=== PATIENT | female | born 1965 | race Caucasian/White ===

== ENCOUNTER 2019-07-31 10:56 | Outpatient (CLI) | payer OTHER, SELFPAY ==
--- NOTE | 2019-07-31 11:00 | MM_ITS ---
WS: [id number] BILATERAL SCREENING MAMMOGRAM WITH CARLOS DISPLACEMENT VIEWS. CAD PERFORMED. HISTORY: encounter for screening mammogram COMPARISON: 10/07/2017, 02/20/2016 and 03/12/2016 Bilateral craniocaudal and mediolateral like views are performed. Carlos displacement views in CC and MLO projection also performed. Breasts composition: The breasts are heterogeneously dense, which may obscure small masses. Prepecto ral implants are similar to the prior study with partial encapsulation. No suspicious mass or calcifi cations identified. MM/[place] [id number] IMPRESSION: BI-RADS: 2-Benign FOLLOW-UP: 1 Year Follow-up
== END 2019-07-31 10:57 | disposition home or self-care (01) ==
LOC: RADSHAW 11:00
PROVIDERS: Family Provider Family Medicine; PCP Family Medicine; Visit Provider Family Medicine
DX: Z12.31 Encounter for screening mammogram for malignant neoplasm of breast (principal)
CPT/HCPCS: 77067

== ENCOUNTER 2019-08-02 08:34 | Emergency (ER) | payer OTHER, SELFPAY ==
[2019-08-02 08:35] VITALS: BP 157/79; PULSE 90; RESP 17; TEMP 36.6; O2SAT 99; BMI 32.4
--- NOTE | 2019-08-02 08:51 | ED_ITS ---
Entered by Chata Akhtar, acting as scribe for Patrick Llanos DO HPI - Dizziness General: Chief Complaint: Dizziness Stated Complaint: DIZZY Time Seen by Provider: 08/02/19 08:48 Source: patient Mode of arrival: ambulatory Limitations: no limitations History of Present Illness: HPI Narrative: 54 yo female presents with dizziness. pt states this started Wednesday after infusion.pt states she is having tenderness on bilateral flanks. pt states nothing makes this better or worse. pt states she has Chrons disease. pt denies any other symptoms at this time. MD elicited complaint: dizziness and lightheadedness Onset (ago): day(s) (4 days ago) Timing: gradual onset Severity: moderate Description: lightheadedness Context: change in body position and exertion History of similar symptoms: Yes Exacerbating factors: movement/ambulation Relieving factors: nothing Associated symptoms: Denies chest pain, chills, malaise, nausea or vomiting Review of Systems General: Reports: 10 or more systems reviewed and unremarkable except in HPI and below Const: Denies: fever, chills, body aches, change in appetite, fatigue or malaise ENMT: Denies: oral sores/lesions Card: Denies: chest pain, edema, shortness of breath on exertion or shortness of breath when lying down Resp: Denies: shortness of breath, productive cough or non-productive cough GI: Denies: abdominal pain, nausea, vomiting, vomiting blood, coffee grounds in vomit, diarrhea, constipation, bloating, blood in stool or black tarry stool : Reports: flank pain Skin/Breast: Denies: rash or itching PFS ED PFSH: Surgical History (Updated 08/02/19 @ 09:09 by Chata Akhtar) H/O breast augmentation H/O neck surgery H/O tubal ligation Social History Smoking and tobacco status: never smoked Physical Exam Const: COMMON NORMALS: average body habitus, oriented x3 and alert GENERAL APPEARANCE: cooperative, comfortable, well kempt and well developed NUTRITIONAL APPEARANCE: obese ORIENTATION/CONSCIOUSNESS: Yes awake, Yes oriented to person and Yes oriented to place HENMT: COMMON NORMALS: normocephalic, head/scalp atraumatic, EAC's normal, TM's normal bilaterally, external nose normal, moist oral mucous membranes and oropharynx normal HEAD & SCALP: normocephalic and atraumatic NOSE: external nose normal EXTERNAL AUDITORY CANAL: EAC's normal TYMPANIC MEMBRANE: TM's normal bilaterally MOUTH: oral and palatal mucosa normal, lip normal and tongue normal THROAT: posterior oropharynx normal and tonsils normal Eye: COMMON NORMALS: PERRL, EOMs intact bilaterally, conjunctivae normal and no scleral icterus CONJUNCTIVA: Yes conjunctivae normal PUPIL: Yes PERRL Neck/C-Spine: COMMON NORMALS: full ROM, no lymphadenopathy, supple, no meningeal signs and thyroid normal THYROID: thyroid normal and asymmetrical Lymph: LYMPHATIC: no lymphadenopathy noted Resp: COMMON NORMALS: normal respiratory effort, no retractions, no use of accessory muscles and clear to auscultation bilaterally AUSCULTATION: clear to auscultation bilaterally Cardio: COMMON NORMALS: regular rate and regular rhythm RATE: regular rate RHYTHM: regular rhythm HEART SOUNDS: no murmurs GI: COMMON NORMALS: normal to inspection, nondistended, normoactive bowel sounds, soft to palpation and no hepatosplenomegaly PALPATION: Yes soft and Yes no hepatosplenomegaly Extremity: COMMON NORMALS: no clubbing, cyanosis or edema, no calf tenderness and no pedal edema Neuro: COMMON NORMALS: oriented x3 SENSORIUM/ORIENTATION: Yes alert, Yes oriented to person and Yes oriented to place MENINGEAL SIGNS: Yes no meningeal signs Psych: APPEARANCE: Yes well kempt Skin: COMMON NORMALS: no rashes or lesions noted and skin turgor normal GENERAL SKIN EXAM: no rashes or lesions noted and turgor normal Course ED course: Patient improved with medications and fluids he wishes to go home I think she does have a positional vertigo she can reproduce her symptoms with position changes. Is not as bad after the fluids but still present she wishes to go home we will send her home with meclizine to use PRN Vital Signs: Vital signs: Vital Signs Temperature 97.8 F 08/02/19 08:35 Pulse Rate 78 08/02/19 11:30 Respiratory Rate 17 08/02/19 10:40 Blood Pressure 137/90 08/02/19 11:30 Pulse Oximetry 99 08/02/19 11:30 MDM - Dizziness Lab Data: Labs: Lab Results 08/02/19 08/02/19 08/02/19 Range/Units 09:27 10:25 10:25 WBC 5.6 (4.0-10.0) 10^3/ uL RBC 5.18 (4.1-5.3) 10^6/u L Hgb 14.7 (11.5-15.3) g/dL Hct 44.7 (37.0-47.0) % MCV 86.3 (81-99) fL MCH 28.4 (28.0-34.0) pg MCHC 32.9 (30.0-36.0) g/dL RDW 12.3 (12.1-15.1) % Plt Count 334 (130-400) 10^3/c mm MPV 9.5 (7.4-10.4) fL Neut % (Auto) 68.3 % Lymph % (Auto) 23.7 % Bracken % (Auto) 4.8 % Eos % (Auto) 2.3 % Baso % (Auto) 0.5 % Neut # (Auto) 3.8 (1.8-7.7) 10^3/u L Lymph # (Auto) 1.3 (0.8-4.8) 10^3/u L Bracken # (Auto) 0.3 (0.2-0.9) 10^3/u L Eos # (Auto) 0.1 (0.0-0.8) 10^3/u L Baso # (Auto) 0.0 (0.0-0.1) 10^3/u L Nucleated RBC % (a uto) 0 % Nucleated RBCs # 0.0 /100WBC Sodium 141 (136-145) mmol/L Potassium 4.0 (3.5-5.1) mmol/L Chloride 103 (98-107) mmol/L Carbon Dioxide 25 (22-29) mmol/L Anion Gap 17.0 (5-19) BUN 8 (6-20) mg/dL Creatinine 0.7 (0.5-0.9) mg/dL GFR Calculation 87.9 L (90-130) mL/min Glucose 99 (65-115) mg/dL Calcium 10.4 (8.5-10.5) mg/dL Magnesium 2.5 H (1.7-2.3) mg/dL Total Bilirubin 0.4 (0.15-1.2) mg/dL AST 18 (0-32) U/L ALT 14 (0-33) U/L Alkaline Phosphata se 92 (35-105) IU/L Total Protein 7.6 (6.6-8.7) g/dL Albumin 4.3 (3.5-5.2) g/dL Globulin 3.3 (1.3-4.6) g/dL Urine Color Yellow (Yellow) Urine Appearance Clear (CLEAR) Urine pH 6.5 (5-7) Ur Specific Gravit y 1.005 (1.005-1.030) Urine Protein Neg (Negative) Urine Glucose (UA) Norm (Normal) Urine Ketones Negative (Negative) Urine Blood Neg (Negative) Urine Nitrate Negative (Negative) Urine Bilirubin Neg (NEGATIVE) Urine Urobilinogen Norm (Negative) mg/dL Ur Leukocyte Noemi ase Negative (Negative) Serum Ketones (Negative) 08/02/19 Range/Units 10:25 WBC (4.0-10.0) 10^3/ uL RBC (4.1-5.3) 10^6/u L Hgb (11.5-15.3) g/dL Hct (37.0-47.0) % MCV (81-99) fL MCH (28.0-34.0) pg MCHC (30.0-36.0) g/dL RDW (12.1-15.1) % Plt Count (130-400) 10^3/c mm MPV (7.4-10.4) fL Neut % (Auto) % Lymph % (Auto) % Bracken % (Auto) % Eos % (Auto) % Baso % (Auto) % Neut # (Auto) (1.8-7.7) 10^3/u L Lymph # (Auto) (0.8-4.8) 10^3/u L Bracken # (Auto) (0.2-0.9) 10^3/u L Eos # (Auto) (0.0-0.8) 10^3/u L Baso # (Auto) (0.0-0.1) 10^3/u L Nucleated RBC % (a uto) % Nucleated RBCs # /100WBC Sodium (136-145) mmol/L Potassium (3.5-5.1) mmol/L Chloride (98-107) mmol/L Carbon Dioxide (22-29) mmol/L Anion Gap (5-19) BUN (6-20) mg/dL Creatinine (0.5-0.9) mg/dL GFR Calculation (90-130) mL/min Glucose (65-115) mg/dL Calcium (8.5-10.5) mg/dL Magnesium (1.7-2.3) mg/dL Total Bilirubin (0.15-1.2) mg/dL AST (0-32) U/L ALT (0-33) U/L Alkaline Phosphata se (35-105) IU/L Total Protein (6.6-8.7) g/dL Albumin (3.5-5.2) g/dL Globulin (1.3-4.6) g/dL Urine Color (Yellow) Urine Appearance (CLEAR) Urine pH (5-7) Ur Specific Gravit y (1.005-1.030) Urine Protein (Negative) Urine Glucose (UA) (Normal) Urine Ketones (Negative) Urine Blood (Negative) Urine Nitrate (Negative) Urine Bilirubin (NEGATIVE) Urine Urobilinogen (Negative) mg/dL Ur Leukocyte Noemi ase (Negative) Serum Ketones Negative (Negative) Discharge Plan Discharge Patient Disposition: Home, Self-Care Clinical Impression: Acute labyrinthitis Condition: Stable Prescriptions: New meclizine 25 mg tablet 25 mg PO QID PRN (Reason: dizziness) Qty: 20 RF: 0 No Action clonazepam 0.5 mg tablet 0.5 mg PO ONCE PRN (Reason: insomnia) 30 Days Qty: 30 RF: 5 Tylenol 325 mg Tablet 325 mg PO QID PRN (Reason: Pain) RF: 0 Vitamin D3 50 mcg (2,000 unit) Capsule 50 mcg PO DAILY RF: 0 zolpidem 10 mg tablet See Rx Instructions .ROUTE .COMPLEX RF: 0 levothyroxine 50 mcg Tablet 50 mcg PO DAILY RF: 0 Discharge Orders: Discharge Order (Routine); Ordered 08/02/19 Ordered By: Patrick Llanos Referrals: Galen Amador MD [Primary Care Provider] - Discharge Diet: Usual diet Discharge Activity: Increase activity as tolerated Activity Restrictions/Additional Instructions: Follow-up with your primary care doctor return to the emergency room if worsens Discharge Date/Time: 08/02/19 11:30 Coding Level of Care Code ED Clinical Data Manager for Chg Fwd Exam Comprehensive The documentation recorded by the Hermilo pacheco Bridget Annette, accurately reflects the service I personally performed and the decisions made by , Patrick Llanos, Aug 02, 2019 08:34
[2019-08-02 08:55] VITALS: O2SAT 98
[2019-08-02 10:37] LABS: Basophils % 0.5 %; Eosinophils # 0.1 10^3/uL (0.0-0.8); Eosinophils % 2.3 %; Hematocrit 44.7 % (37.0-47.0); Hemoglobin 14.7 g/dL (11.5-15.3); Lymphocytes # 1.3 10^3/uL (0.8-4.8); Lymphocytes % 23.7 %; Mean Corpuscular HGB Conc 32.9 g/dL (30.0-36.0); Mean Corpuscular Hemoglobin 28.4 pg (28.0-34.0); Mean Corpuscular Volume 86.3 fL (81-99); Mean Platelet Volume 9.5 fL (7.4-10.4); Monocytes # 0.3 10^3/uL (0.2-0.9); Monocytes % 4.8 %; Neutrophils # 3.8 10^3/uL (1.8-7.7); Neutrophils % 68.3 %; Nucleated Red Blood Cells % 0 %; Platelet Count 334 10^3/cmm (130-400); Red Blood Count 5.18 10^6/uL (4.1-5.3); Red Cell Distribution Width 12.3 % (12.1-15.1); White Blood Count 5.6 10^3/uL (4.0-10.0)
[2019-08-02] MEDS: sodium chloride 0.9% 1,000 ML 999 ML IV (10:38)
[2019-08-02 10:40] VITALS: BP 139/82; PULSE 83; RESP 17; O2SAT 100
[2019-08-02 10:48] LABS: Alanine Aminotransferase 14 U/L (0-33); Albumin Level 4.3 g/dL (3.5-5.2); Alkaline Phosphatase 92 IU/L (35-105); Aspartate Amino Transferase 18 U/L (0-32); Blood Urea Nitrogen 8 mg/dL (6-20); Calcium 10.4 mg/dL (8.5-10.5); Carbon Dioxide 25 mmol/L (22-29); Chloride 103 mmol/L (98-107); Globulin 3.3 g/dL (1.3-4.6); Glomerular Filtration Rate 87.9 mL/min (90-130); Glucose 99 mg/dL (65-115); Magnesium 2.5 mg/dL (1.7-2.3); Sodium 141 mmol/L (136-145); Total Bilirubin 0.4 mg/dL (0.15-1.2); Total Protein 7.6 g/dL (6.6-8.7)
[2019-08-02 10:54] LABS: Ketone (Acetest) Serum Negative (Negative)
[2019-08-02 11:13] LABS: Add Urine Microscopic? NO
[2019-08-02 11:16] LABS: Bilirubin Urine Neg (NEGATIVE); Blood Urine Neg (Negative); Glucose Urine UA Norm (Normal); Ketones Urine Negative (Negative); Leukocyte Esterase Urine Negative (Negative); Nitrate Urine Negative (Negative); Protein Urine Neg (Negative); Specific Gravity, Urine 1.005 (1.005-1.030); Urine Appearance Clear (CLEAR); Urine Color Yellow (Yellow); Urobilinogen Urine Norm (Negative); pH Urine 6.5 (5-7)
[2019-08-02 11:30] VITALS: BP 137/90; PULSE 78; O2SAT 99
== END 2019-08-02 11:30 | disposition home or self-care (01) ==
PROVIDERS: Emergency Provider Family Medicine; Family Provider Family Medicine; PCP Family Medicine
DX: H83.09 Labyrinthitis, unspecified ear (principal)
CPT/HCPCS: 36415; 80053; 81003; 82009; 83735; 85025; 96360; 99283; A9270; J7030

== ENCOUNTER → 2019-09-02 09:32 | Outpatient (BNVA) | payer OTHER, SELFPAY | PROVIDERS: Family Provider Family Medicine; PCP Family Medicine; Visit Provider Internal Medicine Critical Care Medicine | DX: D86.9 Sarcoidosis, unspecified (principal) | CPT/HCPCS: 36415; 82164; 82306; 82310; 82340; 82652; 83970 ==

== ENCOUNTER 2019-10-04 13:37 | Outpatient (CLI) | payer OTHER, SELFPAY ==
--- NOTE | 2019-10-04 14:00 | CT_ITS ---
WS: [id number] CT CHEST TECHNIQUE: Noncontrast CT of the chest with coronal and sagittal reformatted images. CLINICAL INFORMATION: sarcoidosis COMPARISON: CTA chest August 22, 2015 DLP: 746.[address] scans at [facility] use at least one of these dose optimization techniques: automat ed exposure control; mA and/or kV adjustment per patient size (includes targeted exams where dose is matched to clinical indication); or iterative reconstruction. FINDINGS: Postoperative changes breast implants. Both lungs are well aerated. No acute pulmonary infiltrates. N o consolidation or pleural fluid. No suspicious pulmonary parenchymal opacities. No mediastinal or hi lar lymphadenopathy. Thyroid gland is normal. Normal endobronchial tree. No significant pericardial f luid. Adrenal glands are normal. Normal caliber upper abdominal aorta. No axillary lymphadenopathy. Again seen is the large lobular lesion in the right hepatic lobe which appears unchanged since January 12, 2018 measuring approximately 5.6 x 2.5 CM. This is incompletely evaluated on this chest CT nonco ntrast study. CT/CT chest wo con [id number] IMPRESSION: 1. No suspicious pulmonary parenchymal opacities. 2. No mediastinal or hilar lymphadenopathy. No calcified mediastinal lymph nod es. 3. Stable lobulated lesion right hepatic lobe. Differential considerations are unchanged including focal nodular hyperplasia, hepatic adenoma, and less likel y well-differentiated HCC considering stability. This is partially evaluated on this noncontrast examination measuring 5.6 x 8.5 CM. Recommend continued surve illance and correlation with liver function tests.
== END 2019-10-04 13:38 | disposition home or self-care (01) ==
LOC: RAD 13:40
PROVIDERS: Family Provider Family Medicine; PCP Family Medicine; Visit Provider Internal Medicine Critical Care Medicine
DX: D86.9 Sarcoidosis, unspecified (principal); K76.9 Liver disease, unspecified
CPT/HCPCS: 71250

== ENCOUNTER 2019-11-16 07:08 | Outpatient (CLI) | payer OTHER, SELFPAY ==
--- NOTE | 2019-11-16 15:17 | PFTS_ITS ---
Date of Study:11/16/19 Date of Dictation: MECHANICS: Forced vital capacity (FVC) is normal. Forced expiratory volume in one second (FEV1) is normal. . FEV1/FVC is normal. FLOW VOLUME LOOP: No expiratory peak. LUNG VOLUMES: Total lung capacity (TLC) is normal. Residual volume (RV) is normal. DIFFUSING CAPACITY FOR CARBON MONOXIDE: normal. INTERPRETATION: The pulmonary function tests are normal.. MTDD
== END 2019-11-16 07:09 | disposition home or self-care (01) ==
LOC: RT 07:10
PROVIDERS: Family Provider Family Medicine; PCP Family Medicine; Visit Provider Internal Medicine Critical Care Medicine
DX: D86.9 Sarcoidosis, unspecified (principal)
CPT/HCPCS: 94010; 94726; 94729

== ENCOUNTER 2019-11-28 12:50 | Outpatient (CLI) | payer OTHER, SELFPAY ==
[2019-11-28 13:28] VITALS: BP 149/94; PULSE 89; RESP 16; TEMP 36.7; O2SAT 98
[2019-11-28 15:43] VITALS: BP 130/85; PULSE 64
--- NOTE | 2019-11-28 16:27 | PC.NURSE ---
1330 Pt here for first dose of Remicade. Discussed Remicade and side effects. Remicade initiated at 10ml/hr and increased per doctor orders. Pt took pre medication of benadryl and Tylenol at home prior to arrival.
[2019-11-28 16:32] VITALS: BP 142/90; PULSE 78; RESP 16; TEMP 36.6; O2SAT 100
== END 2019-11-28 12:51 | disposition home or self-care (01) ==
LOC: RHEOACUTE 12:51
PROVIDERS: Family Provider Family Medicine; PCP Family Medicine; Visit Provider Internal Medicine Rheumatology
DX: K51.00 Ulcerative (chronic) pancolitis without complications (principal); Z79.899 Other long term (current) drug therapy
CPT/HCPCS: 36415; 80053; 80076; 82565; 85025; 85651; 86140; 96365; 96366; J1745; J7050

== ENCOUNTER 2019-12-12 14:33 | Outpatient (CLI) | payer OTHER, SELFPAY ==
[2019-12-12 14:48] VITALS: BP 132/92; PULSE 88; RESP 16; TEMP 36.6; O2SAT 98
[2019-12-12 17:00] VITALS: BP 133/86; PULSE 76; O2SAT 97
--- NOTE | 2019-12-12 17:29 | PC.NURSE ---
1513 Remicade infusion started at 10ml/hr. Advanced per orders. Tolerated well.
== END 2019-12-12 14:34 | disposition home or self-care (01) ==
LOC: RHEOACUTE 14:33
PROVIDERS: Family Provider Family Medicine; PCP Family Medicine; Visit Provider Internal Medicine Rheumatology
DX: Z79.899 Other long term (current) drug therapy (principal); K51.90 Ulcerative colitis, unspecified, without complications
CPT/HCPCS: 36415; 80053; 85025; 86140; 96365; 96366; J1745; J7050

== ENCOUNTER 2019-12-14 13:16 | Outpatient (CLI) | payer OTHER, SELFPAY ==
--- NOTE | 2019-12-14 13:22 | XR_ITS ---
WS: [id number] RIGHT HAND: 2 VIEW(S) TECHNIQUE: PA and lateral. HISTORY: joint pain, sarcoidosis COMPARISON: None available. No acute fracture or dislocation. No soft tissue or bone abnormality. XR/XR hand RT 2V [id number] IMPRESSION: Normal RIGHT hand.
--- NOTE | 2019-12-14 13:22 | XR_ITS ---
WS: [id number] RIGHT FOOT: 2 VIEW(S) TECHNIQUE: AP and lateral. HISTORY: joint pain COMPARISON: None available. No acute fracture or dislocation. Mild hallux valgus deformity. No erosions. No soft tissue abnormality or bone destruction. XR/XR foot RT 2V [id number] IMPRESSION: No erosions. Mild hallux valgus deformity.
--- NOTE | 2019-12-14 13:22 | XR_ITS ---
WS: [id number] LEFT HAND: 2 VIEW(S) TECHNIQUE: PA and lateral. HISTORY: joint pain, sarcoidosis COMPARISON: None available. No acute fracture or dislocation. No soft tissue or bone abnormality. XR/XR hand LT 2V [id number] IMPRESSION: Normal LEFT hand.
--- NOTE | 2019-12-14 13:22 | XR_ITS ---
WS: [id number] LEFT FOOT: 2 VIEW(S) TECHNIQUE: AP and lateral. HISTORY: joint pain COMPARISON: None available. No acute fracture or dislocation. Mild hallux valgus deformity. Small calcaneal spur. XR/XR foot LT 2V [id number] IMPRESSION: Mild hallux valgus deformity.
== END 2019-12-14 13:17 | disposition home or self-care (01) ==
LOC: RADWPI 13:19
PROVIDERS: Family Provider Family Medicine; PCP Family Medicine; Visit Provider Internal Medicine Rheumatology
DX: D86.9 Sarcoidosis, unspecified (principal); M25.541 Pain in joints of right hand; M25.542 Pain in joints of left hand; M25.572 Pain in left ankle and joints of left foot; M25.571 Pain in right ankle and joints of right foot; M20.12 Hallux valgus (acquired), left foot; M20.11 Hallux valgus (acquired), right foot
CPT/HCPCS: 73120; 73620

== ENCOUNTER 2020-01-15 14:55 | Outpatient (CLI) | payer OTHER, SELFPAY ==
[2020-01-15 15:01] VITALS: BP 137/87; PULSE 79; RESP 16; TEMP 36.8; O2SAT 96
--- NOTE | 2020-01-15 15:31 | PC.NURSE ---
Pt took benadryl and Tylenol prior to arrival
[2020-01-15 18:04] VITALS: BP 155/96; PULSE 84; RESP 16; O2SAT 96
== END 2020-01-15 14:56 | disposition home or self-care (01) ==
LOC: RHEOACUTE 14:55
PROVIDERS: PCP Family Medicine; Visit Provider Internal Medicine Rheumatology
DX: K51.00 Ulcerative (chronic) pancolitis without complications (principal); Z79.899 Other long term (current) drug therapy
CPT/HCPCS: 36415; 85025; 96365; 96366; J1745; J7050

== ENCOUNTER 2020-02-13 08:24 | Outpatient (CLI) | payer OTHER, SELFPAY | END 2020-02-13 08:25 | disposition home or self-care (01) | LOC: LAB 08:27 | PROVIDERS: Family Provider Family Medicine; PCP Family Medicine; Visit Provider Internal Medicine Gastroenterology | DX: K51.911 Ulcerative colitis, unspecified with rectal bleeding (principal) | CPT/HCPCS: 36415; 80299 ==

== ENCOUNTER 2020-02-27 13:46 | Outpatient (CLI) | payer OTHER, SELFPAY ==
[2020-02-27 15:00] VITALS: BP 144/94; PULSE 96; RESP 16; TEMP 36.8; O2SAT 97
--- NOTE | 2020-02-27 15:17 | PC.NURSE ---
Pt took Tylenol and Benadryl prior to appt.
[2020-02-27 16:09] VITALS: BMI 37.0
[2020-02-27 17:33] VITALS: BP 134/86; PULSE 84
== END 2020-02-27 13:47 | disposition home or self-care (01) ==
LOC: RHEOACUTE 13:46
PROVIDERS: Family Provider Family Medicine; PCP Family Medicine; Visit Provider Internal Medicine Rheumatology
DX: M19.90 Unspecified osteoarthritis, unspecified site (principal); Z79.899 Other long term (current) drug therapy; Z11.59 Encounter for screening for other viral diseases; Z11.1 Encounter for screening for respiratory tuberculosis; K50.90 Crohn's disease, unspecified, without complications; K76.89 Other specified diseases of liver; D86.9 Sarcoidosis, unspecified; Z79.52 Long term (current) use of systemic steroids
CPT/HCPCS: 80053; 80076; 82306; 82565; 85025; 85651; 86038; 86140; 86431; 86480; 86704; 86803; 86812; 87340; 96365; 96366; 99204; J1745; J7050

== ENCOUNTER 2020-02-29 11:16 | Outpatient (CLI) | payer OTHER, SELFPAY ==
--- NOTE | 2020-02-29 11:24 | XR_ITS ---
WS: [id number] LEFT TECHNIQUE: 3 views of the left knee CLINICAL INFORMATION: joint pain COMPARISON: None. FINDINGS: Left knee is normal in appearance. No evidence of acute fracture dislocation. No significant effusion . Patella is normal. XR/XR knee LT 3V* [id number] IMPRESSION: Normal left knee.
--- NOTE | 2020-02-29 11:24 | XR_ITS ---
WS: [id number] KNEE RIGHT TECHNIQUE: 3 views of the right knee CLINICAL INFORMATION: joint pain COMPARISON: None. FINDINGS: Right knee is normal in appearance. No evidence of acute fracture dislocation. No significant effusio n. Patella is normal. XR/XR knee RT 3V* [id number] IMPRESSION: Normal right knee.
== END 2020-02-29 11:17 | disposition home or self-care (01) ==
LOC: RADWPI 11:21
PROVIDERS: Family Provider Family Medicine; PCP Family Medicine; Visit Provider Internal Medicine Rheumatology
DX: M25.50 Pain in unspecified joint (principal); Z79.899 Other long term (current) drug therapy
CPT/HCPCS: 73562

== ENCOUNTER 2020-03-13 08:18 | Observation (INO) | payer OTHER, SELFPAY ==
[2020-03-13] VITALS (14 sets, daily range): BP systolic 109–149; BP diastolic 70–101; PULSE 62–121; RESP 16–25; TEMP 36.6; O2SAT 93–100; BMI 36.6
--- NOTE | 2020-03-13 08:25 | XRR_ITS ---
PROCEDURE INFORMATION: Exam: XR Chest, 1 View Exam date and time: 03/13/2020 8:57 AM Age: 55 years old Clinical indication: Dyspnea; Prior surgery; Surgery type: Breast; Patient HX: Cough, headache, SOB, loss of taste and smell TECHNIQUE: Imaging protocol: XR of the chest Views: 1 view. COMPARISON: CT chest con [id number] 10/04/2019 2:01 PM FINDINGS: Lungs: Mild interstitial prominence. Questionable left basilar airspace disease, which can be better evaluated with PA and lateral chest radiographs. Pleural space: No pleural effusion. Heart/Mediastinum: No cardiomegaly. Bones/joints: Unremarkable. XR/XR chest 1V portable [id number] IMPRESSION: Questionable left basilar airspace disease, which can be better evaluated with PA and lateral chest radiographs.
--- NOTE | 2020-03-13 08:28 | ECG_ITS ---
[facility] Test Date: 2020-03-13 Pat Name: Michelle Huynh Department: Room: Gender: Female Machine [employer]er: : [id number] Requested By: Patrick Aldrich Order Number: [id number] Jerry MD: Muriel Reynoso M.D. Measurements Intervals [place] Rate: 100 P: 27 CO: 133 QRS: 3 QRSD: 99 T: 21 QT: 334 QTc: 433 Interpretive Statements SINUS TACHYCARDIA POSSIBLE LEFT ATRIAL ENLARGEMENT [-0.1mV P WAVE IN V1/V2] INDETERMINATE AXIS INCOMPLETE RIGHT BUNDLE BRANCH BLOCK [90+ ms QRS DURATION, TERMINAL R IN V1/V2, 40+ ms S IN I/aVL/V4/V5/V6] ABNORMAL RHYTHM ECG Compared to ECG 03/30/2019 07:07:22 Indeterminate axis now present Incomplete right bundle-branch block now present Sinus rhythm no longer present Electronically Signed On 03-13-2020 18:36:10 CDT by Muriel Reyonso M.D. [email or web address]
--- NOTE | 2020-03-13 08:28 | W.ED.SOB ---
HPI - SOB/Dyspnea General: Chief Complaint: Shortness of Breath/Dyspnea Stated Complaint: DIFFICULTY BREATHING Time Seen by Provider: 03/13/20 08:25 History of Present Illness: HPI Narrative: 55-year-old female comes in complaining of shortness of breath. About 4 to 5 days ago she started having sinus congestion and anosmia. The nose Monik is continuing. This morning she suddenly had onset of severe shortness of breath and chest discomfort she describes as kind of a heaviness she cannot quite catch her breath. She is not had any fever sweats or chills she has had some myalgias. She just generally has not felt well. She not had any productive cough. She has had some diarrhea. She has a history of Crohn's disease but does states that this current diarrhea has not been bloody and is been different than her usual attacks of Crohn's. In addition to that she was recently diagnosed with sarcoidosis. Finally she reports that when she was a teenager she was started on oral contraceptive pills and developed a DVT in her left leg which required hospitalization for anticoagulation. She has had multiple potential exposures to COVID-19 through her workplace. MD elicited complaint: shortness of breath and cough Pertinent past history: other (Crohn's, sarcoidosis, history of DVT precipitated by oral contraceptive pills) Onset (ago): day(s) (4-5) Context: occurred during exertion Timing: intermittent Severity: severe Exacerbating factors: exertion Relieving factors: rest Associated symptoms: Reports chest congestion, chest pain and cough; Deny abdominal pain, diaphoresis, dizziness, extremity pain, fever(s), hemoptysis, lightheadedness, myalgias, nausea, orthopnea, palpitations, paresthesias, polydipsia, polyuria, rash, sense of impending doom, syncope or vomiting Treatment prior to arrival: none Review of Systems Const: Denies: fever(s) or diaphoresis ENMT: Denies: throat pain, ear or mastoid pain, nasal discharge or nasal congestion Card: Reports: chest pain; Denies: palpitations, lightheadedness, syncope or orthopnea Resp: Reports: chest congestion; Denies: hemoptysis GI: Denies: abdominal pain, nausea or vomiting : Denies: flank pain, difficulty voiding, dysuria, urinary frequency or urinary urgency Musc: Denies: extremity pain Skin/Breast: Denies: rash or pruritus Neuro: Denies: dizziness Endo: Denies: polyuria or polydipsia PFSH ED PFSH: Medical History Anxiety Crohn disease Focal nodular hyperplasia of liver High risk medication use Hypothyroidism Immunization counseling Inflammatory arthritis Insomnia Lipoma of anterior chest wall Sarcoidosis Surgical History H/O breast augmentation H/O neck surgery H/O tubal ligation Family History Father Cancer Mother Lung disease Social History Smoking and tobacco status: never smoked Second hand smoke exposure: Yes Alcohol intake: never Lives independently: Yes Household members: spouse Marital status: Current occupational status: employed Current occupational exposures/hazards: No History of recent travel: No Current gender identity: Female Physical Exam Const: COMMON NORMALS: no acute distress GENERAL APPEARANCE: cooperative and comfortable ORIENTATION/CONSCIOUSNESS: Yes awake, Yes oriented to person, Yes oriented to place and Yes oriented to time HENMT: COMMON NORMALS: normocephalic, atraumatic and hearing grossly normal bilaterally HEAD & SCALP: normocephalic and atraumatic Eye: COMMON NORMALS: Equal, round and reactive pupils present, EOMs intact bilaterally, conjunctivae normal and no scleral icterus CONJUNCTIVA: Yes conjunctivae normal PUPIL: Yes Equal, round and reactive pupils present Neck/C-Spine: COMMON NORMALS: full ROM, no lymphadenopathy, supple and no JVD Lymph: LYMPHATIC: no lymphadenopathy noted and no lymphedema noted Resp: COMMON NORMALS: normal respiratory effort, No retractions, No use of accessory muscles and clear to auscultation bilaterally AUSCULTATION: clear to auscultation bilaterally Cardio: COMMON NORMALS: no JVD, regular rhythm and No murmurs present (Cardio) RATE: tachycardic RHYTHM: regular rhythm GI: COMMON NORMALS: Soft to palpation and No hepatosplenomegaly present AUSCULTATION: Yes normoactive bowel sounds PALPATION: Yes Soft to palpation, No Tenderness to palpation present (GI), No Guarding due to palpation present (GI) and Yes No hepatosplenomegaly present Extremity: COMMON NORMALS: normal to inspection, capillary refill normal, no clubbing, cyanosis or edema, no calf tenderness and no pedal edema Neuro: SENSORIUM/ORIENTATION: Yes oriented to person, Yes oriented to place and Yes oriented to time Skin: COMMON NORMALS: no rashes or lesions noted GENERAL SKIN EXAM: no rashes or lesions noted Course Vital Signs: Vital signs: Vital Signs Temperature 98.2 F 03/14/20 12:26 Pulse Rate 88 03/14/20 12:26 Respiratory Rate 16 03/14/20 12:26 Blood Pressure 133/83 03/14/20 12:26 Pulse Oximetry 99 03/14/20 12:26 MDM - SOB/Dyspnea MDM Narrative: Medical decision making narrative: Will place patient in observation the one issue in concerned about his her PO2 was exceptionally low on her first blood gas. Her rapid antigen was negative PCR is pending. Discussed with Dr. Carrasquillo. Lab Data: Labs: Lab Results 03/13/20 03/13/20 03/13/20 Range/Units 08:40 08:40 08:40 WBC 6.3 (4.0-10.0) 10^3/ uL RBC 5.18 (4.1-5.3) 10^6/u L Hgb 15.5 H (11.5-15.3) g/dL Hct 46.2 (37.0-47.0) % MCV 89.2 (81-99) fL MCH 29.9 (28.0-34.0) pg MCHC 33.5 (30.0-36.0) g/dL RDW 12.1 (12.1-15.1) % Plt Count 353 (130-400) 10^3/c mm MPV 10.4 (7.4-10.4) fL Neut % (Auto) 52.7 % Lymph % (Auto) 35.3 % [place] % (Auto) 7.6 % Eos % (Auto) 3.3 % Baso % (Auto) 0.8 % Neut # (Auto) 3.33 (1.8-7.7) 10^3/u L Lymph # (Auto) 2.2 (0.8-4.8) 10^3/u L [place] # (Auto) 0.5 (0.2-0.9) 10^3/u L Eos # (Auto) 0.2 (0.0-0.8) 10^3/u L Baso # (Auto) 0.1 (0.0-0.1) 10^3/u L Nucleated RBC % (a uto) 0 % Nucleated RBCs # 0.0 /100WBC Fibrinogen 399 (174-498) mg/dL D-Dimer 0.35 (0-0.59) ug/mIFE U Specimen Type Sample Site ABG pH (7.35-7.45) ABG pCO2 (35-45) mmHg ABG pO2 (80.0-100.0) mmH g ABG HCO3 (22-26) mmol/L ABG O2 Saturation ABG Base Excess (-2.0-2.0) mmol/ L [place] Test A-a O2 Gradient (5-10) mmHg Hematocrit (37-47) % Hgb O2 Saturation (95-100) % Carboxyhemoglobin (0.4-20.1) %THgb Methemoglobin (0.4-1.5) % Total Hemoglobin (12-16) g/dL Ionized Calcium (1.1-1.4) mmol/L O2 Delivery Device Population Health Coach ID Sodium Cancelled Potassium Cancelled Chloride Cancelled Carbon Dioxide Cancelled Anion Gap Cancelled BUN Cancelled Creatinine Cancelled GFR Calculation Cancelled Glucose Cancelled Calculated Osmolal ity Cancelled Lactic Acid (0.5-2.2) mmol/L Lactic Acid (Sepsi s) (0.5-2.2) mmol/L Calcium Cancelled Phosphorus (2.5-4.5) mg/dL Magnesium Cancelled Ferritin Cancelled Total Bilirubin Cancelled AST Cancelled ALT Cancelled Alkaline Phosphata se Cancelled Lactate Dehydrogen ase Cancelled Troponin T Baselin e Troponin T 120 Min [place] (0-10) ng/L Delta Troponin T (0-10) ABS# C-Reactive Protein Cancelled Total Protein Cancelled Albumin Cancelled Globulin Cancelled Procalcitonin Cancelled TSH (0.27-4.20) uIU/ mL Salicylates (3-10) mg/dL Nasal/Oral COVID-1 9 PCR Influenza Type A A g (Negative) Influenza Type B A g (Negative) SARS-CoV-2 Ag (Rap id) (Negative) 03/13/20 03/13/20 03/13/20 Range/Units 08:40 08:57 08:57 WBC (4.0-10.0) 10^3/ uL RBC (4.1-5.3) 10^6/u L Hgb (11.5-15.3) g/dL Hct (37.0-47.0) % MCV (81-99) fL MCH (28.0-34.0) pg MCHC (30.0-36.0) g/dL RDW (12.1-15.1) % Plt Count (130-400) 10^3/c mm MPV (7.4-10.4) fL Neut % (Auto) % Lymph % (Auto) % [place] % (Auto) % Eos % (Auto) % Baso % (Auto) % Neut # (Auto) (1.8-7.7) 10^3/u L Lymph # (Auto) (0.8-4.8) 10^3/u L [place] # (Auto) (0.2-0.9) 10^3/u L Eos # (Auto) (0.0-0.8) 10^3/u L Baso # (Auto) (0.0-0.1) 10^3/u L Nucleated RBC % (a uto) % Nucleated RBCs # /100WBC Fibrinogen (174-498) mg/dL D-Dimer (0-0.59) ug/mIFE U Specimen Type Arterial Sample Site Radial, left ABG pH 7.63 H* (7.35-7.45) ABG pCO2 15.3 L* (35-45) mmHg ABG pO2 51.8 L (80.0-100.0) mmH g ABG HCO3 16.2 L (22-26) mmol/L ABG O2 Saturation 94.6 ABG Base Excess -1.3 (-2.0-2.0) mmol/ L Kayode Test Pos A-a O2 Gradient 10.0 (5-10) mmHg Hematocrit 46.4 (37-47) % Hgb O2 Saturation 96.9 (95-100) % Carboxyhemoglobin 0.7 (0.4-20.1) %THgb Methemoglobin < 0.0 L (0.4-1.5) % Total Hemoglobin 15.1 (12-16) g/dL Ionized Calcium 1.2 (1.1-1.4) mmol/L O2 Delivery Device Room air Population Health Coach ID Cak Sodium 138.0 Potassium 4.0 Chloride Carbon Dioxide Anion Gap BUN Creatinine GFR Calculation Glucose 105.0 Calculated Osmolal ity Lactic Acid (0.5-2.2) mmol/L Lactic Acid (Sepsi s) (0.5-2.2) mmol/L Calcium Phosphorus (2.5-4.5) mg/dL Magnesium Ferritin Total Bilirubin AST ALT Alkaline Phosphata se Lactate Dehydrogen ase Troponin T Baselin e Cancelled Troponin T 120 Min [place] (0-10) ng/L Delta Troponin T (0-10) ABS# C-Reactive Protein Total Protein Albumin Globulin Procalcitonin TSH (0.27-4.20) uIU/ mL Salicylates (3-10) mg/dL Nasal/Oral COVID-1 9 PCR Influenza Type A A g (Negative) Influenza Type B A g (Negative) SARS-CoV-2 Ag (Rap id) Negative (Negative) 03/13/20 03/13/20 03/13/20 Range/Units 08:57 09:13 09:13 WBC (4.0-10.0) 10^3/ uL RBC (4.1-5.3) 10^6/u L Hgb (11.5-15.3) g/dL Hct (37.0-47.0) % MCV (81-99) fL MCH (28.0-34.0) pg MCHC (30.0-36.0) g/dL RDW (12.1-15.1) % Plt Count (130-400) 10^3/c mm MPV (7.4-10.4) fL Neut % (Auto) % Lymph % (Auto) % [place] % (Auto) % Eos % (Auto) % Baso % (Auto) % Neut # (Auto) (1.8-7.7) 10^3/u L Lymph # (Auto) (0.8-4.8) 10^3/u L [place] # (Auto) (0.2-0.9) 10^3/u L Eos # (Auto) (0.0-0.8) 10^3/u L Baso # (Auto) (0.0-0.1) 10^3/u L Nucleated RBC % (a uto) % Nucleated RBCs # /100WBC Fibrinogen (174-498) mg/dL D-Dimer (0-0.59) ug/mIFE U Specimen Type Sample Site ABG pH (7.35-7.45) ABG pCO2 (35-45) mmHg ABG pO2 (80.0-100.0) mmH g ABG HCO3 (22-26) mmol/L ABG O2 Saturation ABG Base Excess (-2.0-2.0) mmol/ L [place] Test A-a O2 Gradient (5-10) mmHg Hematocrit (37-47) % Hgb O2 Saturation (95-100) % Carboxyhemoglobin (0.4-20.1) %THgb Methemoglobin (0.4-1.5) % Total Hemoglobin (12-16) g/dL Ionized Calcium (1.1-1.4) mmol/L O2 Delivery Device Population Health Coach ID Sodium 137 Potassium 3.5 Chloride 102 Carbon Dioxide 19 L Anion Gap 19.5 H BUN 10 Creatinine 0.8 GFR Calculation 75.0 L Glucose 99 Calculated Osmolal ity 283 L Lactic Acid 3.5 H (0.5-2.2) mmol/L Lactic Acid (Sepsi s) (0.5-2.2) mmol/L Calcium 10.5 Phosphorus (2.5-4.5) mg/dL Magnesium 2.0 Ferritin 144 Total Bilirubin 0.5 AST 22 ALT 21 Alkaline Phosphata se 73 Lactate Dehydrogen ase 223 H Troponin T Baselin e Troponin T 120 Min [place] (0-10) ng/L Delta Troponin T (0-10) ABS# C-Reactive Protein 0.7 Total Protein 7.9 Albumin 4.9 Globulin 3.0 Procalcitonin 0.05 TSH (0.27-4.20) uIU/ mL Salicylates (3-10) mg/dL Nasal/Oral COVID-1 9 PCR Influenza Type A A g Negative (Negative) Influenza Type B A g Negative (Negative) SARS-CoV-2 Ag (Rap id) (Negative) 03/13/20 03/13/20 03/13/20 Range/Units 09:13 09:13 09:13 WBC (4.0-10.0) 10^3/ uL RBC (4.1-5.3) 10^6/u L Hgb (11.5-15.3) g/dL Hct (37.0-47.0) % MCV (81-99) fL MCH (28.0-34.0) pg MCHC (30.0-36.0) g/dL RDW (12.1-15.1) % Plt Count (130-400) 10^3/c mm MPV (7.4-10.4) fL Neut % (Auto) % Lymph % (Auto) % [place] % (Auto) % Eos % (Auto) % Baso % (Auto) % Neut # (Auto) (1.8-7.7) 10^3/u L Lymph # (Auto) (0.8-4.8) 10^3/u L [place] # (Auto) (0.2-0.9) 10^3/u L Eos # (Auto) (0.0-0.8) 10^3/u L Baso # (Auto) (0.0-0.1) 10^3/u L Nucleated RBC % (a uto) % Nucleated RBCs # /100WBC Fibrinogen (174-498) mg/dL D-Dimer (0-0.59) ug/mIFE U Specimen Type Sample Site ABG pH (7.35-7.45) ABG pCO2 (35-45) mmHg ABG pO2 (80.0-100.0) mmH g ABG HCO3 (22-26) mmol/L ABG O2 Saturation ABG Base Excess (-2.0-2.0) mmol/ L Kay[place] Test A-a O2 Gradient (5-10) mmHg Hematocrit (37-47) % Hgb O2 Saturation (95-100) % Carboxyhemoglobin (0.4-20.1) %THgb Methemoglobin (0.4-1.5) % Total Hemoglobin (12-16) g/dL Ionized Calcium (1.1-1.4) mmol/L O2 Delivery Device Population Health Coach ID Sodium Potassium Chloride Carbon Dioxide Anion Gap BUN Creatinine GFR Calculation Glucose Calculated Osmolal ity Lactic Acid (0.5-2.2) mmol/L Lactic Acid (Sepsi s) (0.5-2.2) mmol/L Calcium Phosphorus 1.2 L (2.5-4.5) mg/dL Magnesium 2.1 Ferritin Total Bilirubin AST ALT Alkaline Phosphata se Lactate Dehydrogen ase Troponin T Baselin e 6 Troponin T 120 Min [place] (0-10) ng/L Delta Troponin T (0-10) ABS# C-Reactive Protein Total Protein Albumin Globulin Procalcitonin TSH 2.62 2.55 (0.27-4.20) uIU/ mL Salicylates < 0.3 L (3-10) mg/dL Nasal/Oral COVID-1 9 PCR Influenza Type A A g (Negative) Influenza Type B A g (Negative) SARS-CoV-2 Ag (Rap id) (Negative) 03/13/20 03/13/20 03/13/20 Range/Units 10:00 11:18 11:18 WBC (4.0-10.0) 10^3/ uL RBC (4.1-5.3) 10^6/u L Hgb (11.5-15.3) g/dL Hct (37.0-47.0) % MCV (81-99) fL MCH (28.0-34.0) pg MCHC (30.0-36.0) g/dL RDW (12.1-15.1) % Plt Count (130-400) 10^3/c mm MPV (7.4-10.4) fL Neut % (Auto) % Lymph % (Auto) % [place] % (Auto) % Eos % (Auto) % Baso % (Auto) % Neut # (Auto) (1.8-7.7) 10^3/u L Lymph # (Auto) (0.8-4.8) 10^3/u L [place] # (Auto) (0.2-0.9) 10^3/u L Eos # (Auto) (0.0-0.8) 10^3/u L Baso # (Auto) (0.0-0.1) 10^3/u L Nucleated RBC % (a uto) % Nucleated RBCs # /100WBC Fibrinogen (174-498) mg/dL D-Dimer (0-0.59) ug/mIFE U Specimen Type Sample Site ABG pH (7.35-7.45) ABG pCO2 (35-45) mmHg ABG pO2 (80.0-100.0) mmH g ABG HCO3 (22-26) mmol/L ABG O2 Saturation ABG Base Excess (-2.0-2.0) mmol/ L Kay[place] Test A-a O2 Gradient (5-10) mmHg Hematocrit (37-47) % Hgb O2 Saturation (95-100) % Carboxyhemoglobin (0.4-20.1) %THgb Methemoglobin (0.4-1.5) % Total Hemoglobin (12-16) g/dL Ionized Calcium (1.1-1.4) mmol/L O2 Delivery Device Population Health Coach ID Sodium Potassium Chloride Carbon Dioxide Anion Gap BUN Creatinine GFR Calculation Glucose Calculated Osmolal ity Lactic Acid (0.5-2.2) mmol/L Lactic Acid (Sepsi s) 2.1 (0.5-2.2) mmol/L Calcium Phosphorus (2.5-4.5) mg/dL Magnesium Ferritin Total Bilirubin AST ALT Alkaline Phosphata se Lactate Dehydrogen ase Troponin T Baselin e Troponin T 120 Min [place] 6.00 (0-10) ng/L Delta Troponin T 0 (0-10) ABS# C-Reactive Protein Total Protein Albumin Globulin Procalcitonin TSH (0.27-4.20) uIU/ mL Salicylates (3-10) mg/dL Nasal/Oral COVID-1 9 PCR Negative Influenza Type A A g (Negative) Influenza Type B A g (Negative) SARS-CoV-2 Ag (Rap id) (Negative) Discharge Plan Discharge Patient Disposition: Placed in Observation Admit Provider: Maria Elena Carrasquillo Condition: Stable Referrals: Galen Amador MD [Primary Care Provider] - 03/19/20 11:30 am (Follow up on Wednesday if appointment available) Discharge Diet: Advance as tolerated Discharge Activity: Increase activity as tolerated and Return to work/school after cleared by PCP/Specialist Patient Instructions: Albuterol (By breathing), Crohn Disease (DC), Generalized Anxiety Disorder (DC), Sarcoidosis (DC), Dyspnea (GEN) Additional Instructions: Discharge to home with albuterol inhaler to use as needed for shortness of breath Continue with other home medications as prescribed Continue on quarantine isolation until COVID testing returns. If you continue to have symptoms would recommend follow-up with your primary care provider to determine if repeat testing is indicated. Do not return to work until cleared by your primary care provider. Call your physician or present to the ED for any acute illness or concern. Discharge Date/Time: 03/13/20 14:15 Coding Level of Care Code ED Dianetic Counselor for Chg Fwd Exam Comprehensive
[2020-03-13] MEDS: dexamethasone 4 mg/mL INJ 6 MG IVP (09:02)
[2020-03-13 09:07] LABS: Basophils # 0.1 10^3/uL (0.0-0.1); Basophils % 0.8 %; Eosinophils # 0.2 10^3/uL (0.0-0.8); Eosinophils % 3.3 %; Hematocrit 46.2 % (37.0-47.0); Hemoglobin 15.5 g/dL (11.5-15.3); Lymphocytes # 2.2 10^3/uL (0.8-4.8); Lymphocytes % 35.3 %; Mean Corpuscular HGB Conc 33.5 g/dL (30.0-36.0); Mean Corpuscular Hemoglobin 29.9 pg (28.0-34.0); Mean Corpuscular Volume 89.2 fL (81-99); Mean Platelet Volume 10.4 fL (7.4-10.4); Monocytes # 0.5 10^3/uL (0.2-0.9); Monocytes % 7.6 %; Neutrophils # 3.33 10^3/uL (1.8-7.7); Neutrophils % 52.7 %; Nucleated Red Blood Cells % 0 %; Platelet Count 353 10^3/cmm (130-400); Red Blood Count 5.18 10^6/uL (4.1-5.3); Red Cell Distribution Width 12.1 % (12.1-15.1); White Blood Count 6.3 10^3/uL (4.0-10.0)
[2020-03-13 09:08] LABS: Arterial Blood Gas Hematocrit 46.4 % (37-47); Base Excess ABG -1.3 mmol/L (-2.0-2.0); Blood Gas Allen Test Pos; Blood Gas Operator Identificat CAK; Blood Gas Sample Site Radial, left; Blood Gas Sample Type Arterial; Carboxyhemoglobin 0.7 %THgb (0.4-20.1); HCO3 ABG 16.2 mmol/L (22-26); HGB O2 Sat 96.9 % (95-100); Ionized Calcium Level - ABG 1.2 mmol/L (1.1-1.4); Methemoglobin < 0.0 % (0.4-1.5); Oxygen Device ROOM AIR; Oxygen Saturation ABG 94.6; PO2 ABG 51.8 mmHg (80.0-100.0); Total Hemoglobin 15.1 g/dL (12-16)
[2020-03-13 09:09] LABS: ABG PCO2 15.3 mmHg (35-45); ABG PH Result 7.63 (7.35-7.45)
[2020-03-13 09:20] LABS: Fibrinogen 399 mg/dL (174-498)
[2020-03-13 09:22] LABS: D Dimer 0.35 ug/mIFEU (0-0.59)
[2020-03-13 09:41] LABS: Troponin(5th) Baseline 6 ng/L (0-10)
[2020-03-13 09:44] LABS: Influenza A by IFA Negative (Negative); Influenza B by IFA Negative (Negative); SARS Covid-2 Antigen Negative (Negative)
[2020-03-13 09:48] LABS: Procalcitonin 0.05 ng/mL (0-0.5)
[2020-03-13 09:55] LABS: Lactic Sepsis W/Reflex 3.5 mmol/L (0.5-2.2)
[2020-03-13 10:18] LABS: Alanine Aminotransferase 21 U/L (0-33); Albumin Level 4.9 g/dL (3.5-5.2); Alkaline Phosphatase 73 IU/L (35-105); Anion Gap 19.5 (5-19); Aspartate Amino Transferase 22 U/L (0-32); Blood Urea Nitrogen 10 mg/dL (6-20); C Reactive Protein 0.7 mg/L (0.0-4.9); Calcium 10.5 mg/dL (8.5-10.5); Carbon Dioxide 19 mmol/L (22-29); Chloride 102 mmol/L (98-107); Ferritin 144 ng/mL (15-150); Glucose 99 mg/dL (65-115); Lactate Dehydrogenase 223 U/L (135-214); Osmolality Calculated 283 mOsm/kg (285-295); Potassium 3.5 mmol/L (3.5-5.1); Sodium 137 mmol/L (136-145); Total Bilirubin 0.5 mg/dL (0.15-1.2); Total Protein 7.9 g/dL (6.6-8.7)
--- NOTE | 2020-03-13 10:28 | ECG_ITS ---
[facility] Test Date: 2020-03-13 Pat Name: Michelle Huynh Department: Room: 270 Gender: Female Human Resources Operations Specialist: : [id number] Requested By: Patrick Aldrich Order Number: [id number] Jerry MD: Muriel Reynoso M.D. Measurements Intervals [place] Rate: 93 P: 6 IL: 134 QRS: 68 QRSD: 97 T: 34 QT: 370 QTc: 461 Interpretive Statements SINUS RHYTHM INDETERMINATE AXIS INCOMPLETE RIGHT BUNDLE BRANCH BLOCK [90+ ms QRS DURATION, TERMINAL R IN V1/V2, 40+ ms S IN I/aVL/V4/V5/V6] POSSIBLE RIGHT VENTRICULAR HYPERTROPHY [SOME/ALL OF: PROMINENT R IN V1, LATE TRANSITION, RAD, USAMA, SSS] Compared to ECG 03/13/2020 08:48:49 Sinus tachycardia no longer present Electronically Signed On 03-13-2020 18:37:38 CDT by Muriel Reynoso M.D. [id number]
--- NOTE | 2020-03-13 10:53 | CT_ITS ---
WS: [id number] CT CHEST ANGIOGRAPHY WITH REFORMATS HISTORY: sudden onset dyspnea/hx of DVT TECHNIQUE: Contiguous axial images are obtained through the chest during arterial injection of intrav enous contrast. Images are reconstructed to evaluate the pulmonary arteries. MIP imaging also reviewe d. All CT scans at [facility] use at least one of these dose optimization techniques: aut omated exposure control; mA and/or kV adjustment per patient size (includes targeted exams where dose is matched to clinical indication); or iterative reconstruction. CONTRAST: Omnipaque 350; 95 mL IV. DLP: 1029.98 mGy.cm COMPARISON: 10/04/2019 Limited but adequate opacification of the pulmonary arteries. There is no pulmonary embolism identifi ed. Pulmonary artery size is normal. Beyond the segmental branches there is no pulmonary embolism. He art size is normal. No pericardial or pleural effusions. No pneumonia. No pulmonary nodule or mass. N o mediastinal or hilar adenopathy. Thoracic aorta is normal. No dissection or aneurysm. Bilateral breast implants. No adrenal mass. Visualized none hepatic mass is not as well seen today. Mass of long-term stability. CT/CT angio chest PE protcl [id number] IMPRESSION: 1. No pulmonary embolism. 2. Normal thoracic aorta. 3. No pneumonia.
[2020-03-13] MEDS: levofloxacin-dextrose 5 % 750 MG/150 ML PREMIX 100 MG IV (10:59)
[2020-03-13 11:03] LABS: Reflex Lactate Order REFLEX LACTIC ORDERD
--- NOTE | 2020-03-13 11:22 | PC.NURSE ---
Lab called me into the room to look at the pts IV site. The pts veins above the IV were red/blue in color. slight erythema around the AC area. pt denies any itching or other adverse reaction at this time. Informed pt to use her call light of anything changed. Ed physician was informed
[2020-03-13 11:43] LABS: Lactic Acid level (Lactate) 2.1 mmol/L (0.5-2.2)
[2020-03-13 11:44] LABS: Troponin 5 2HR Delta 0 ABS# (0-10)
--- NOTE | 2020-03-13 11:56 | PM.HP ---
Providers/Chief Complaint Admitting Physician: Maria Elena Carrasquillo DO Primary Care Provider: Galen Amador MD Chief Complaint: DIFFICULTY BREATHING History of Present Illness Michelle Huynh is a 55 year old female with a past medical history of sarcoidosis, Crohn's disease, history of DVT that presented to the emergency department today for shortness of breath. She reported that over the past couple of days she has had increasing fatigue and over the past day she has had increasing cough and shortness of breath. 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 She reported that she went into the work today felt that she could not catch her breath therefore went to her primary care provider's office, due to continued severe symptoms she was sent to the ER. She stated that she has had loss of smell and taste for the past 2 days with increasing nasal congestion. She also reports increased diarrhea. She does have a history of Crohn's disease therefore she has chronic issues with her stool but she feels like her diarrhea has recently increased. She was seen and evaluated in the emergency department noted to have concern for tachypnea and tachycardia and admitted for further evaluation and treatment. Rapid testing for COVID-19 was negative with PCR sent out for confirmation. Review of Systems Const: Reports: body aches, fatigue and malaise; Denies: fever(s) or chills Eyes: Denies: change in vision ENMT: Reports: nasal congestion and other (loss of taste and smell) Card: Denies: chest pain, palpitations or edema Resp: Reports: dyspnea; Denies: productive cough or hemoptysis GI: Reports: diarrhea; Denies: abdominal pain, nausea, vomiting, constipation, hematochezia or melena : Denies: dysuria or hematuria Musc: Denies: extremity pain or muscle cramps Skin/Breast: Denies: rash or new lesions Neuro: Denies: headache(s) or dizziness Psych: Denies: anxiety or depression Endo: Denies: polyuria or hot flashes Oren/Lymph: Denies: easy bruising or easy bleeding Medications/Allergies Home Medications Medication Instructions Recorded Confirmed Last Taken Type acetaminophen [Tylenol] 325 mg PO QID PRN 08/02/19 03/13/20 08/01/19 History cholecalciferol (vitamin D3) 50 mcg PO DAILY 08/02/19 03/13/20 03/13/20 History [Vitamin D3] levothyroxine 50 mcg PO DAILY 08/02/19 03/13/20 03/13/20 History infliximab 100 mg intravenous See Rx Instructions .ROUTE 11/30/19 03/13/20 Unknown History solution .COMPLEX each triamcinolone acetonide 0.1 % 1 applic TOPICAL BID 02/27/20 03/13/20 Unknown History topical cream meloxicam 7.5 mg tablet 7.5 mg PO DAILY #20 tab 03/04/20 03/13/20 03/13/20 Rx clonazepam 0.5 mg PO DAILY PRN 03/13/20 03/13/20 Unknown History sulfasalazine See Rx Instructions .ROUTE .COMPLEX 03/13/20 03/13/20 03/13/20 History zolpidem 10 mg PO BEDTIME PRN 03/13/20 03/13/20 Unknown History Allergies Allergy/AdvReac Type Severity Reaction Status Date / Time citalopram Allergy ALGY-Joint Verified 03/04/20 13:51 Pain PFSH Acute PFSH: Medical History Anxiety Crohn disease Focal nodular hyperplasia of liver High risk medication use Hypothyroidism Immunization counseling Inflammatory arthritis Insomnia Lipoma of anterior chest wall Sarcoidosis Surgical History H/O breast augmentation H/O neck surgery H/O tubal ligation Family History Father Cancer Mother Lung disease Social History Smoking and tobacco status: never smoked Second hand smoke exposure: Yes Alcohol intake: never Lives independently: Yes Household members: spouse Marital status: Current occupational status: employed Current occupational exposures/hazards: No History of recent travel: No Current gender identity: Female Vitals/I&O/Wt Last Vital Signs Temp 97.9 F 03/13/20 08:21 Pulse 92 03/13/20 11:10 Resp 18 03/13/20 11:10 BP 136/90 03/13/20 11:10 Pulse Ox 100 03/13/20 11:10 Weight last 48 hrs Weight 99.79 kg Physical Exam Const: COMMON NORMALS: patient oriented x3 and alert GENERAL APPEARANCE: cooperative ORIENTATION/CONSCIOUSNESS: Yes awake, Yes oriented to person, Yes oriented to place and Yes oriented to time HENMT: COMMON NORMALS: normocephalic and atraumatic HEAD & SCALP: normocephalic and atraumatic Eye: COMMON NORMALS: Equal, round and reactive pupils present PUPIL: Yes Equal, round and reactive pupils present Neck/C-Spine: COMMON NORMALS: supple GENERAL: Yes normal visual inspection Resp: COMMON NORMALS: clear to auscultation bilaterally EFFORT & INSPECTION: Yes symmetric chest movement and Yes tachypneic AUSCULTATION: clear to auscultation bilaterally, no rhonchi and no wheezes Cardio: COMMON NORMALS: regular rhythm and No murmurs present (Cardio) RATE: tachycardic RHYTHM: regular rhythm GI: COMMON NORMALS: Soft to palpation and non-tender INSPECTION: No abdominal distension AUSCULTATION: Yes normoactive bowel sounds PALPATION: Yes Soft to palpation Extremity: COMMON NORMALS: no clubbing, cyanosis or edema and no calf tenderness Neuro: COMMON NORMALS: patient oriented x3, CN's II-XII intact bilaterally, moves all extremities and no focal motor deficits SENSORIUM/ORIENTATION: Yes alert, Yes oriented to person, Yes oriented to place and Yes oriented to time SPEECH: speech normal Psych: COMMON NORMALS: mental status grossly normal and cooperative Skin: COMMON NORMALS: no rashes or lesions noted GENERAL SKIN EXAM: no rashes or lesions noted Data : 03/13/20 08:40 03/13/20 09:13 Micro: Microbiology 03/13/20 11:18 Blood Culture - Preliminary Blood SPECIMEN COLLECTED 03/13/20 09:13 Blood Culture - Preliminary Blood SPECIMEN COLLECTED CTA Chest: I personally reviewed and interpreted this imaging study as follows: Radiologist's impression: COMPARISON: 10/04/2019 Limited but adequate opacification of the pulmonary arteries. There is no pulmonary embolism identified. Pulmonary artery size is normal. Beyond the segmental branches there is no pulmonary embolism. Heart size is normal. No pericardial or pleural effusions. No pneumonia. No pulmonary nodule or mass. No mediastinal or hilar adenopathy. Thoracic aorta is normal. No dissection or aneurysm. Bilateral breast implants. No adrenal mass. Visualized none hepatic mass is not as well seen today. Mass of long-term stability. CT/CT angio chest PE protcl [id number] IMPRESSION: 1. No pulmonary embolism. 2. Normal thoracic aorta. 3. No pneumonia. CXR: I personally reviewed and interpreted this imaging study as follows: Radiologist's impression: IMPRESSION: Questionable left basilar airspace disease, which can be better evaluated with PA and lateral chest radiographs. A&P Assessment and plan (1) Dyspnea: Patient reports increasing dyspnea over the past 2 days with anosmia, nasal congestion and exposure to COVID 19 Rapid testing negative for COVID-19, however will check with send out PCR testing CTA negative for acute infiltrate or PE ECHO ordered Serial EKG and troponin Telemetry RTAT Repeat ABG Oxygen per protocol Status: Acute (2) Sarcoidosis: Followed by Dr. Whitman and Dr. Scott, primarily cutaneous manifestations Status: Acute (3) Crohn disease: Followed by [employer] in [place] Currently on Remicade Completed a course of prednisone approximately 1 month ago Status: Acute Qualifiers: Digestive disease complication type: unspecified complication Gastrointestinal tract location: large intestine Qualified Code(s): K50.119 - Crohn's disease of large intestine with unspecified complications (4) Anxiety: Continue home Klonopin Status: Acute Additional A&P Information Respiratory alkalosis with concomitant metabolic acidosis with elevated anion gap: Continue to evaluate further causes. Repeat ABG ordered. Ordered salicylate level. Question of venous sample with hyperventilation Hypothyroidism: Check TSH, continue on home levothyroxine Known liver lesion, found on imaging in September of this year, 5.6 x 8.5 cm stable lobulated lesion of the right hepatic lobe. Recommend continued outpatient follow-up Diet: Regular DVT prophylaxis: Lovenox CODE STATUS: Full code Attestations Medical Necessity Statement*: Observation due to dyspnea with hypoxia and tachycardia, expected stay less than 2 midnights Coding Level of Care Code Acute Director Of Sales for Chg Fwd Exam Comprehensive Diagnoses Dyspnea R06.00 Sarcoidosis D86.9 Crohn disease K50.119 Digestive disease complication type: unspecified complication Gastrointestinal tract location: large intestine Anxiety F41.9
[2020-03-13] MEDS: iohexol 350 mg/mL 100 mL Btl IV ×2 (12:03→12:04)
--- NOTE | 2020-03-13 12:11 | PC.NURSE ---
pt taken off 2L O2 and put on room air, spO2 of 100 percent
[2020-03-13 12:26] LABS: Thyroid Stimulating Hormone 2.62 uIU/mL (0.27-4.20)
--- NOTE | 2020-03-13 14:34 | USCV_ITS ---
Lino Michelle Age: 55 Gender: F : 1965 Exam Date: 03/13/2020 15:14 Ordering Phys: Maria Elena Carrasquillo DO Technologist: Juan R Villegas Exam Location: [facility] [place] Indication: SOB BP: 130 / 82 HR: 91 Rhythm: Sinus Technical Quality: Fair MEASUREMENTS (Male / Female) Normal Values 2D ECHO LV Diastolic Diameter PLAX 5.0 cm 4.2 - 5.9 / 3.9 - 5.3 cm LV Systolic Diameter PLAX 2.5 cm IVS Diastolic Thickness 0.7 cm 0.6 - 1.0 / 0.6 - 0.9 cm IVS Systolic Thickness 1.3 cm LVPW Diastolic Thickness 0.9 cm 0.6 - 1.0 / 0.6 - 0.9 cm LVPW Systolic Thickness 1.1 cm LVOT Diameter 2.0 cm LV Ejection Fraction 2D Teich 75.0 % LV Ejection Fraction MOD 2C 62.0 % LV Ejection Fraction 2C AL 61.9 % LA Diameter 3.1 cm LA Width 3.7 cm LA Height 3.6 cm RA Width 3.1 cm RA Height 3.6 cm M-MODE LV Diastolic Diameter MM 4.4 cm 4.2 - 5.9 / 3.9 - 5.3 cm LV Systolic Diameter MM 2.8 cm LV Ejection Fraction MM Teich 66.7 % IVS Diastolic Thickness MM 0.9 cm 0.6 - 1.0 / 0.6 - 0.9 cm IVS Systolic Thickness MM 1.5 cm LVPW Diastolic Thickness MM 1.0 cm 0.6 - 1.0 / 0.6 - 0.9 cm LVPW Systolic Thickness MM 1.2 cm RV Diastolic Diameter MM 1.3 cm Aortic Annulus Diameter 3.3 cm LA Ao Ratio MM 1.1 MV E Point Septal Separation 1.0 cm DOPPLER AV Peak Velocity 144.0 cm/s LVOT Peak Velocity 90.0 cm/s AV Area Cont Eq vti 2.3 cm squared AV Area Cont Eq pk 1.9 cm squared MV Area PHT 5.0 cm squared Mitral E to A Ratio 0.9 MV E' Velocity 50.0 cm/s Mitral E to MV E' Ratio 10.4 Mitral E to LV E' Lateral Ratio 8.2 Mitral E to LV E' Septal Ratio 14.1 TR Peak Velocity 119.7 cm/s TR Peak Gradient 5.7 mmHg TV Peak E Velocity 74.7 cm/s Right Atrial Pressure 3.0 mmHg Pulmonary Artery Systolic Pressu 8.7 mmHg PV Peak Velocity 145.0 cm/s FINDINGS Left Ventricle Normal left ventricular size and systolic function, EF 68 %. No regional wall motion abnormalities. Right Ventricle The right ventricle is normal in size and function. Right Atrium The right atrium is normal in size. Left Atrium The left atrium is normal in size. Mitral Valve No gross abnormalities noted . Aortic Valve No gross abnormalities noted . Tricuspid Valve No gross abnormalities noted . Pulmonic Valve Pulmonic valve not well visualized. Pericardium Normal pericardium without effusion. Aorta Normal ascending aorta dimension. CONCLUSIONS Normal left ventricular size and systolic function, EF 68 %. No regional wall motion abnormalities. Normal cardiac chamber sizes. No significant stenotic or ureteral lesions. Technically difficult study because of the poor ultrasonic window. Dr Sheila Bond MD FAC (Electronically Signed) Final Date: 13 March 2020 19:52 S
[2020-03-13 14:54] LABS: Add Urine Microscopic? NO
[2020-03-13 14:58] LABS: Bilirubin Urine Neg (Negative); Blood Urine Neg (Negative); Glucose Urine UA Norm (Normal); Ketones Urine Negative (Negative); Leukocyte Esterase Urine Negative (Negative); Nitrate Urine Negative (Negative); Protein Urine Neg (Negative); Sulfosalicylic Acid Urine Negative (Negative); Urine Appearance Clear (CLEAR); Urine Color Yellow (Yellow); Urobilinogen Urine Norm (Negative); pH Urine 9 (5-7)
[2020-03-13 15:03] LABS: Blood Gas Allen Test Pos; Blood Gas Sample Type Arterial; Oxygen Device ROOM AIR
[2020-03-13 15:12] LABS: Magnesium 2.1 mg/dL (1.7-2.3); Phosphorus 1.2 mg/dL (2.5-4.5); Thyroid Stimulating Hormone 2.55 uIU/mL (0.27-4.20)
[2020-03-13 15:15] LABS: Salicylate < 0.3 mg/dL (3-10)
--- NOTE | 2020-03-13 15:20 | PC.NURSE ---
US at bedside at this time.
[2020-03-13] MEDS: sodium chloride 0.9% 1,000 ML 75 ML IV (15:31)
[2020-03-13] MEDS: enoxaparin 40 mg/0.4 mL Syringe SUBCUT (15:31)
[2020-03-13 15:43] LABS: Troponin 5 6HR Delta 0 ng/L (0-12)
[2020-03-13 15:58] LABS: ABG PH Result 7.55 (7.35-7.45); Alveolar-Arterial Oxygen Gradi 1.3 mmHg (5-10); Arterial Blood Gas Hematocrit 47.1 % (37-47); Base Excess ABG -1.6 mmol/L (-2.0-2.0); Blood Gas Operator Identificat AMH; Blood Gas Sample Site Radial, left; Carboxyhemoglobin 0.6 %THgb (0.4-20.1); HCO3 ABG 18.4 mmol/L (22-26); HGB O2 Sat 97.6 % (95-100); Ionized Calcium Level - ABG 1.2 mmol/L (1.1-1.4); Methemoglobin 1.2 % (0.4-1.5); Oxygen Saturation ABG 99.4; Potassium Level - ABG 3.8 mmol/L (3.5-5.0); Total Hemoglobin 15.4 g/dL (12-16)
[2020-03-13] MEDS: acetaminophen 325 mg Tablet 650 MG PO (23:33)
[2020-03-14] VITALS: BP 137/85; PULSE 82; RESP 16; TEMP 36.8; O2SAT 99
[2020-03-14 04:00] VITALS: BP 137/86; PULSE 103; RESP 16; TEMP 36.8; O2SAT 98
[2020-03-14] MEDS: sodium chloride 0.9% 1,000 ML 75 ML IV (04:53)
[2020-03-14 05:39] LABS: Basophils # 0.1 10^3/uL (0.0-0.1); Basophils % 0.9 %; Eosinophils # 0.1 10^3/uL (0.0-0.8); Eosinophils % 1.4 %; Hematocrit 40.2 % (37.0-47.0); Lymphocytes # 2.8 10^3/uL (0.8-4.8); Lymphocytes % 34.9 %; Mean Corpuscular HGB Conc 32.3 g/dL (30.0-36.0); Mean Corpuscular Hemoglobin 29.4 pg (28.0-34.0); Mean Platelet Volume 10.1 fL (7.4-10.4); Monocytes # 0.7 10^3/uL (0.2-0.9); Monocytes % 8.2 %; Neutrophils # 4.39 10^3/uL (1.8-7.7); Neutrophils % 54.4 %; Nucleated Red Blood Cells % 0 %; Platelet Count 328 10^3/cmm (130-400); Red Blood Count 4.42 10^6/uL (4.1-5.3); Red Cell Distribution Width 12.2 % (12.1-15.1); White Blood Count 8.1 10^3/uL (4.0-10.0)
[2020-03-14 05:56] LABS: Anion Gap 12.6 (5-19); Blood Urea Nitrogen 12 mg/dL (6-20); Calcium 9.3 mg/dL (8.5-10.5); Carbon Dioxide 20 mmol/L (22-29); Chloride 108 mmol/L (98-107); Glucose 97 mg/dL (65-115); Osmolality Calculated 284 mOsm/kg (285-295); Potassium 3.6 mmol/L (3.5-5.1); Sodium 137 mmol/L (136-145)
[2020-03-14 08:00] VITALS: BP 127/83; PULSE 100; RESP 16; TEMP 36.8; O2SAT 100
[2020-03-14] MEDS: sulfaSALAzine 500 mg Tablet PO (08:45)
[2020-03-14] MEDS: levothyroxine 50 mcg Tablet PO (08:45)
[2020-03-14] MEDS: meloxicam 7.5 mg tablet PO (08:46)
--- NOTE | 2020-03-14 11:18 | P.DS_ITS ---
Discharge Providers Date of Admission: 03/13/20 12:49 Date of Discharge: March 14, 2020 Attending Provider at Admission: Maria Elena Carrasquillo DO Attending Provider at Discharge: Maria Elena Carrasquillo DO Primary Care Provider: Galen Amador MD Diagnoses at Discharge Discharge Diagnosis (1) Dyspnea: Status: Acute (2) Sarcoidosis: Status: Acute (3) Crohn disease: Status: Acute Qualifiers: Gastrointestinal tract location: large intestine Digestive disease complication type: unspecified complication Qualified Code(s): K50.119 - Crohn's disease of large intestine with unspecified complications (4) Anxiety: Status: Acute Reason for Visit Reason for Visit: DIFFICULTY BREATHING Hospital Course Hospital Course: Patient was seen and evaluated in the emergency department noted to have concern for hypoxia and tachypnea. Patient had been reported to having decreased sense of smell and taste over the past couple of days with increasing sinus congestion. She was rapid tested for COVID-19 by rapid antigen and this returned negative, repeat PCR send out was also ordered. Patient was given IV fluids and conservative management and continued to have improvement of symptoms. On date of discharge she reported that she was continuing to have some decreased sense of smell and taste but otherwise feeling somewhat better. Discussed with her plan to discharge to home with albuterol inhaler but not to return to work until COVID testing returns and until seen by her primary care provider. Patient verbalized understanding and agreed with plan. She denied any concerns on date of discharge. Physical Exam Const: COMMON NORMALS: patient oriented x3 and alert GENERAL APPEARANCE: cooperative ORIENTATION/CONSCIOUSNESS: Yes awake, Yes oriented to person, Yes oriented to place and Yes oriented to time HENMT: COMMON NORMALS: normocephalic and atraumatic HEAD & SCALP: normocephalic and atraumatic Eye: COMMON NORMALS: Equal, round and reactive pupils present PUPIL: Yes Equal, round and reactive pupils present Neck/C-Spine: COMMON NORMALS: supple GENERAL: Yes normal visual inspection Resp: COMMON NORMALS: normal respiratory effort and clear to auscultation bilaterally EFFORT & INSPECTION: Yes able to speak in complete sentences and Yes symmetric chest movement AUSCULTATION: clear to auscultation bilaterally, no rhonchi and no wheezes Cardio: COMMON NORMALS: regular rate, regular rhythm and No murmurs present (Cardio) RATE: regular rate RHYTHM: regular rhythm GI: COMMON NORMALS: Soft to palpation and non-tender INSPECTION: No abdominal distension AUSCULTATION: Yes normoactive bowel sounds PALPATION: Yes Soft to palpation Extremity: COMMON NORMALS: no clubbing, cyanosis or edema and no calf tenderness Neuro: COMMON NORMALS: patient oriented x3, CN's II-XII intact bilaterally, moves all extremities and no focal motor deficits SENSORIUM/ORIENTATION: Yes alert, Yes oriented to person, Yes oriented to place and Yes oriented to time SPEECH: speech normal Psych: COMMON NORMALS: mental status grossly normal and cooperative Skin: COMMON NORMALS: no rashes or lesions noted GENERAL SKIN EXAM: no rashes or lesions noted Discharge Data Data Completed and Pending: Completed Studies During Hospitalization Category Date Time Status CT angio chest PE protcl [id number] Stat Cat Scan 03/13/20 10:53 Completed XR chest 1V linda ble [id number] Stat Exams 03/13/20 08:25 Completed CV echo complete* [id number] Routine Ultrasound 03/13/20 14:34 Completed Pending at discharge Category Date Time Status Basic Metabolic P maico AM LABS Lab 03/15/20 04:00 Ordered Basic Metabolic P maico AM LABS Lab 03/16/20 04:00 Ordered Blood Culture Sta t Lab 03/13/20 11:18 Results Complete Blood Co unt w/Auto AM LABS Lab 03/15/20 04:00 Ordered Complete Blood Co unt w/Auto AM LABS Lab 03/16/20 04:00 Ordered Coronavirus Lab T est PTC Routine Lab 03/13/20 10:00 Received Labs from last 24 hours 03/14/20 03/14/20 03/13/20 05:20 05:20 15:15 WBC 8.1 RBC 4.42 Hgb 13.0 Hct 40.2 MCV 91.0 MCH 29.4 MCHC 32.3 RDW 12.2 Plt Count 328 MPV 10.1 Neut % (Auto) 54.4 Lymph % (Auto) 34.9 [place] % (Auto) 8.2 Eos % (Auto) 1.4 Baso % (Auto) 0.9 Neut # (Auto) 4.39 Lymph # (Auto) 2.8 [place] # (Auto) 0.7 Eos # (Auto) 0.1 Baso # (Auto) 0.1 Nucleated RBC % (a uto) 0 Nucleated RBCs # 0.0 Specimen Type Sample Site ABG pH ABG pCO2 ABG pO2 ABG HCO3 ABG O2 Saturation ABG Base Excess Kayode Test A-a O2 Gradient Hematocrit Hgb O2 Saturation Carboxyhemoglobin Methemoglobin Total Hemoglobin Sodium 137 Potassium 3.6 Glucose 97 Ionized Calcium O2 Delivery Device FiO2 Direct Support Staff ID Chloride 108 H Carbon Dioxide 20 L Anion Gap 12.6 BUN 12 Creatinine 0.8 GFR Calculation 75.0 L Calculated Osmolal ity 284 L Lactic Acid (Sepsi s) Calcium 9.3 Phosphorus Magnesium Troponin T 120 Min false pass Delta Troponin T Troponin T Hi Sens 6Hr 6.00 Troponin T Hi Sens 6Hr Delta 0 TSH Urine Color Urine Appearance Urine pH Ur Specific Gravit y Urine Protein Urine Glucose (UA) Urine Ketones Urine Blood Urine Nitrate Urine Bilirubin Prot Sulfosalicyli c Acd Urine Urobilinogen Ur Leukocyte Noemi ase Salicylates 03/13/20 03/13/20 03/13/20 14:50 14:23 11:18 WBC RBC Hgb Hct MCV MCH MCHC RDW Plt Count MPV Neut % (Auto) Lymph % (Auto) [place] % (Auto) Eos % (Auto) Baso % (Auto) Neut # (Auto) Lymph # (Auto) [place] # (Auto) Eos # (Auto) Baso # (Auto) Nucleated RBC % (a uto) Nucleated RBCs # Specimen Type Arterial Sample Site Radial, left ABG pH 7.55 H ABG pCO2 21.0 L ABG pO2 110.0 H ABG HCO3 18.4 L ABG O2 Saturation 99.4 ABG Base Excess -1.6 Kayode Test Pos A-a O2 Gradient 1.3 L Hematocrit 47.1 H Hgb O2 Saturation 97.6 Carboxyhemoglobin 0.6 Methemoglobin 1.2 Total Hemoglobin 15.4 Sodium 139.0 Potassium 3.8 Glucose 112.0 Ionized Calcium 1.2 O2 Delivery Device Room air FiO2 21.0 Direct Support Staff ID Amh Chloride Carbon Dioxide Anion Gap BUN Creatinine GFR Calculation Calculated Osmolal ity Lactic Acid (Sepsi s) 2.1 Calcium Phosphorus Magnesium Troponin T 120 Min false pass Delta Troponin T Troponin T Hi Sens 6Hr Troponin T Hi Sens 6Hr Delta TSH Urine Color Yellow Urine Appearance Clear Urine pH 9 H Ur Specific Gravit y 1.010 Urine Protein Neg Urine Glucose (UA) Norm Urine Ketones Negative Urine Blood Neg Urine Nitrate Negative Urine Bilirubin Neg Prot Sulfosalicyli c Acd Negative Urine Urobilinogen Norm Ur Leukocyte Noemi ase Negative Salicylates 03/13/20 03/13/20 03/13/20 11:18 09:13 09:13 WBC RBC Hgb Hct MCV MCH MCHC RDW Plt Count MPV Neut % (Auto) Lymph % (Auto) [place] % (Auto) Eos % (Auto) Baso % (Auto) Neut # (Auto) Lymph # (Auto) [place] # (Auto) Eos # (Auto) Baso # (Auto) Nucleated RBC % (a uto) Nucleated RBCs # Specimen Type Sample Site ABG pH ABG pCO2 ABG pO2 ABG HCO3 ABG O2 Saturation ABG Base Excess Kayode Test A-a O2 Gradient Hematocrit Hgb O2 Saturation Carboxyhemoglobin Methemoglobin Total Hemoglobin Sodium Potassium Glucose Ionized Calcium O2 Delivery Device FiO2 Direct Support Staff ID Chloride Carbon Dioxide Anion Gap BUN Creatinine GFR Calculation Calculated Osmolal ity Lactic Acid (Sepsi s) Calcium Phosphorus 1.2 L Magnesium 2.1 Troponin T 120 Min false pass 6.00 Delta Troponin T 0 Troponin T Hi Sens 6Hr Troponin T Hi Sens 6Hr Delta TSH 2.55 2.62 Urine Color Urine Appearance Urine pH Ur Specific Gravit y Urine Protein Urine Glucose (UA) Urine Ketones Urine Blood Urine Nitrate Urine Bilirubin Prot Sulfosalicyli c Acd Urine Urobilinogen Ur Leukocyte Noemi ase Salicylates < 0.3 L Vitals: Last Vital Signs Temp 98.3 F 03/14/20 08:00 Pulse 100 03/14/20 08:00 Resp 16 03/14/20 08:00 BP 127/83 03/14/20 08:00 Pulse Ox 100 03/14/20 08:00 Discharge Plan Discharge Patient Disposition: Home Condition: Stable Prescriptions: New albuterol sulfate [Ventolin HFA] 90 mcg/actuation HFA aerosol inhaler 2 inh INHALATION 6XD PRN (Reason: shortness of breath or wheezing) Qty: 6.7 RF: 0 Continued Remicade 100 mg recon soln See Rx Instructions .ROUTE .COMPLEX RF: 0 triamcinolone acetonide 0.1 % cream 1 applic TOPICAL BID RF: 0 meloxicam 7.5 mg tablet 7.5 mg PO DAILY Qty: 20 RF: 0 acetaminophen [Tylenol] 325 mg Tablet 325 mg PO QID PRN (Reason: Pain) RF: 0 cholecalciferol (vitamin D3) [Vitamin D3] 50 mcg (2,000 unit) Capsule 50 mcg PO DAILY RF: 0 levothyroxine 50 mcg Tablet 50 mcg PO DAILY RF: 0 sulfasalazine 500 mg tablet See Rx Instructions .ROUTE .COMPLEX RF: 0 clonazepam 0.5 mg tablet 0.5 mg PO DAILY PRN (Reason: Anxiety) RF: 0 zolpidem 10 mg tablet 10 mg PO BEDTIME PRN (Reason: insomnia) RF: 0 Discharge Orders: Discharge Order (Routine); Ordered 03/14/20 Ordered By: Maria Elena Carrasquillo Referrals: Galen Amador MD [Primary Care Provider] - 1-3 days (Follow up on Wednesday if appointment available) Discharge Diet: Advance as tolerated Discharge Activity: Increase activity as tolerated and Return to work/school after cleared by PCP/Specialist Activity Restrictions/Additional Instructions: Discharge to home with albuterol inhaler to use as needed for shortness of breath Continue with other home medications as prescribed Continue on quarantine isolation until COVID testing returns. If you continue to have symptoms would recommend follow-up with your primary care provider to determine if repeat testing is indicated. Do not return to work until cleared by your primary care provider. Call your physician or present to the ED for any acute illness or concern. Discharge Attestations Time Spent in Discharge Care*: greater than 30 min Specific Discharge Activities: Specific discharge activities: educating patient, discussing with field nurse case manager/social workers/dc planners and documenting/other paperwork Quality Metrics Clinical Quality Measures During this hospital stay, did patient experience: None Coding Level of Care Code Acute Medication Administration Professional for Breanng Fwd Diagnoses Dyspnea R06.00 Sarcoidosis D86.9 Crohn disease K50.119 Gastrointestinal tract location: large intestine Digestive disease complication type: unspecified complication Anxiety F41.9
[2020-03-14 11:37] VITALS: BP 133/83; PULSE 88; RESP 16; TEMP 36.8; O2SAT 99
--- NOTE | 2020-03-14 12:17 | PC.NURSE ---
Discharge note Patient discharge instructions given per physician orders. New meds with side effects taught. Patient verbalized understanding. IV removed with catheter intact. Pressure dressing applied. Patient tolerated well.
[2020-03-14 12:26] VITALS: BP 133/83; PULSE 88; RESP 16; TEMP 36.8; O2SAT 99
[2020-03-14 14:15] LABS: Coronavirus Lab Test PTC Negative
--- NOTE | 2020-03-15 08:14 | PC.RESP ---
PULMONARY REHAB INFORMATION SENT TO PATIENT.
== END 2020-03-14 12:27 | disposition home or self-care (01) ==
LOC: ER 11:52 → MEDSURG 13:30
PROVIDERS: Family Medicine; Admitting Provider Family Medicine; Family Provider Family Medicine; PCP Family Medicine; Visit Provider Family Medicine
DX: R06.00 Dyspnea, unspecified (principal); D86.9 Sarcoidosis, unspecified; K50.119 Crohn's disease of large intestine with unspecified complications; F41.9 Anxiety disorder, unspecified; E87.3 Alkalosis; E03.9 Hypothyroidism, unspecified; K76.9 Liver disease, unspecified; Z86.718 Personal history of other venous thrombosis and embolism
CPT/HCPCS: 12345; 36415; 36600; 71045; 71275; 80048; 80051; 80053; 80307; 81003; 82728; 82810; 83605; 83615; 83735; 83986; 84100; 84145; 84443; 84484; 85025; 85378; 85384; 86140; 87040; 87426; 87635; 87804; 93005; 93306; 94664; 96360; 96361; 96365; 96372; 96375; 99284; 99285; G0378; J1100; J1650; J1956; J7030; Q9967

== ENCOUNTER → 2020-03-19 12:20 | Outpatient (BNVA) | payer OTHER, SELFPAY | PROVIDERS: Family Provider Family Medicine; PCP Family Medicine; Visit Provider Family Medicine | DX: E03.9 Hypothyroidism, unspecified (principal); D86.9 Sarcoidosis, unspecified; M19.90 Unspecified osteoarthritis, unspecified site | CPT/HCPCS: 84439 ==

== ENCOUNTER → 2020-03-20 10:08 | Outpatient (BNVA) | payer OTHER, SELFPAY | PROVIDERS: Family Provider Family Medicine; PCP Family Medicine; Visit Provider Family Medicine | DX: D86.9 Sarcoidosis, unspecified (principal); E03.9 Hypothyroidism, unspecified; M19.90 Unspecified osteoarthritis, unspecified site; Z09 Encounter for follow-up examination after completed treatment for conditions other than malignant neoplasm; F41.9 Anxiety disorder, unspecified | CPT/HCPCS: 84443 ==

== ENCOUNTER → 2020-03-25 14:15 | Outpatient (BNVA) | payer OTHER, SELFPAY | PROVIDERS: Family Provider Family Medicine; PCP Family Medicine; Visit Provider Internal Medicine Rheumatology | DX: M19.90 Unspecified osteoarthritis, unspecified site (principal); K50.119 Crohn's disease of large intestine with unspecified complications; D86.9 Sarcoidosis, unspecified; K76.89 Other specified diseases of liver; Z79.52 Long term (current) use of systemic steroids; M77.01 Medial epicondylitis, right elbow; M77.02 Medial epicondylitis, left elbow | CPT/HCPCS: 99214 ==

== ENCOUNTER → 2020-06-03 11:17 | Outpatient (BNVA) | payer OTHER, SELFPAY | PROVIDERS: Family Provider Family Medicine; PCP Family Medicine; Visit Provider Nurse Practitioner Family | DX: Z20.828 Contact with and (suspected) exposure to other viral communicable diseases (principal) | CPT/HCPCS: 87635 ==

== ENCOUNTER 2020-06-28 14:28 | Outpatient (CLI) | payer OTHER, SELFPAY ==
[2020-06-28 15:24] LABS: Basophils # 0.1 10^3/uL (0.0-0.1); Basophils % 1.4 %; Eosinophils # 0.2 10^3/uL (0.0-0.8); Hematocrit 43.6 % (37.0-47.0); Hemoglobin 12.9 g/dL (11.5-15.3); Lymphocytes # 1.8 10^3/uL (0.8-4.8); Lymphocytes % 35.4 %; Mean Corpuscular HGB Conc 29.6 g/dL (30.0-36.0); Mean Corpuscular Hemoglobin 30.7 pg (28.0-34.0); Mean Corpuscular Volume 103.8 fL (81-99); Mean Platelet Volume 9.8 fL (7.4-10.4); Monocytes # 0.3 10^3/uL (0.2-0.9); Monocytes % 6.4 %; Neutrophils # 2.65 10^3/uL (1.8-7.7); Neutrophils % 52.6 %; Nucleated Red Blood Cells % 0 %; Platelet Count 241 10^3/cmm (130-400); Red Cell Distribution Width 14.4 % (12.1-15.1)
[2020-06-28 16:05] LABS: Slide Review Slide Review Perform
[2020-06-28 16:07] LABS: Alanine Aminotransferase 16 U/L (0-33); Albumin Level 4.2 g/dL (3.5-5.2); Alkaline Phosphatase 71 IU/L (35-105); Blood Urea Nitrogen 10 mg/dL (6-20); C Reactive Protein 0.6 mg/L (0.0-4.9); Calcium 9.3 mg/dL (8.5-10.5); Carbon Dioxide 22 mmol/L (22-29); Chloride 100 mmol/L (98-107); Globulin 2.6 g/dL (1.3-4.6); Glomerular Filtration Rate 104.6 mL/min (90-130); Glucose 93 mg/dL (65-115); Osmolality Calculated 277 mOsm/kg (285-295); Sodium 134 mmol/L (136-145); Total Bilirubin 0.5 mg/dL (0.15-1.2); Total Protein 6.8 g/dL (6.6-8.7)
[2020-06-28 16:14] LABS: Anion Gap 16.4 (5-19); Potassium 4.4 mmol/L (3.5-5.1)
[2020-06-28 16:15] LABS: Aspartate Amino Transferase 24 U/L (0-32)
[2020-07-01 14:02] LABS: Quantiferon Mitogen 9.35 IU/mL; Quantiferon Nil 0.03 IU/mL; Quantiferon Plus TB1 <0.00 IU/mL; Quantiferon Plus TB2 <0.00 IU/mL; Quantiferon TB Gold NEGATIVE (NEGATIVE)
== END 2020-06-28 14:29 | disposition home or self-care (01) ==
PROVIDERS: Family Provider Family Medicine; PCP Family Medicine; Visit Provider Internal Medicine Gastroenterology
DX: K50.119 Crohn's disease of large intestine with unspecified complications (principal)
CPT/HCPCS: 36415; 80053; 80299; 82397; 85025; 86140; 86480; 87506

== ENCOUNTER → 2020-11-04 14:52 | Outpatient (BNVA) | payer OTHER, SELFPAY | PROVIDERS: Family Provider Family Medicine; PCP Family Medicine; Visit Provider Internal Medicine Rheumatology | DX: M19.90 Unspecified osteoarthritis, unspecified site (principal); K50.119 Crohn's disease of large intestine with unspecified complications; Z79.899 Other long term (current) drug therapy; Z79.52 Long term (current) use of systemic steroids; M77.8 Other enthesopathies, not elsewhere classified | CPT/HCPCS: 99214 ==

== ENCOUNTER → 2021-02-12 15:02 | Outpatient (BNVA) | payer OTHER, SELFPAY | PROVIDERS: Family Provider Family Medicine; PCP Family Medicine; Visit Provider Internal Medicine Rheumatology | DX: K50.119 Crohn's disease of large intestine with unspecified complications (principal); M15.9 Polyosteoarthritis, unspecified; Z79.899 Other long term (current) drug therapy; Z71.89 Other specified counseling | CPT/HCPCS: 99214 ==

== ENCOUNTER 2021-02-13 10:35 | Outpatient (CLI) | payer OTHER, SELFPAY ==
[2021-02-13 11:00] LABS: Basophils # 0.1 10^3/uL (0.0-0.1); Basophils % 1.2 %; Eosinophils # 0.3 10^3/uL (0.0-0.8); Eosinophils % 5.5 %; Hemoglobin 13.5 g/dL (11.5-15.3); Lymphocytes % 32.8 %; Mean Corpuscular HGB Conc 32.9 g/dL (30.0-36.0); Mean Corpuscular Hemoglobin 29.9 pg (28.0-34.0); Mean Corpuscular Volume 90.7 fl (81-99); Mean Platelet Volume 9.8 fL (7.4-10.4); Monocytes # 0.3 10^3/uL (0.2-0.9); Monocytes % 5.3 %; Neutrophils % 54.9 %; Nucleated Red Blood Cells % 0 %; Platelet Count 339 10^3/cmm (130-400); Red Blood Count 4.52 10^6/uL (4.1-5.3)
[2021-02-13 11:24] LABS: Alanine Aminotransferase 13 U/L (0-33); Albumin Level 4.5 g/dL (3.5-5.2); Alkaline Phosphatase 99 IU/L (35-105); Aspartate Amino Transferase 18 U/L (0-32); C Reactive Protein 0.7 mg/L (0.0-4.9); Globulin 2.3 g/dL (1.3-4.6); Glomerular Filtration Rate 104.2 mL/min (90-130); Total Bilirubin 0.3 mg/dL (0.15-1.2); Total Protein 6.8 g/dL (6.6-8.7)
== END 2021-02-13 10:36 | disposition home or self-care (01) ==
LOC: LAB 10:43
PROVIDERS: PCP Family Medicine; Visit Provider Internal Medicine Rheumatology
DX: M19.90 Unspecified osteoarthritis, unspecified site (principal); Z79.899 Other long term (current) drug therapy
CPT/HCPCS: 36415; 80076; 82565; 85025; 86140

== ENCOUNTER 2021-05-21 12:50 | Outpatient (CLI) | payer OTHER, SELFPAY ==
--- NOTE | 2021-05-21 13:00 | USCV_ITS ---
Michelle Huynh Age: 56 Gender: F : 1965 Exam Date: 05/21/2021 13:30 Ordering Phys: Galen Amador MD Technologist: Exam Location: [facility] [place] Indication: LT LEG PAIN AND SWELLING HISTORY: Lower extremity swelling. PROCEDURES: Venous duplex imaging was performed in only the left lower extremity. The following venous structures were evaluated: common femoral vein, profunda vein, proximal portion of the greater saphenous vein, superficial femoral vein, and the popliteal vein. In addition, the posterior tibial and peroneal trunk were evaluated. On the left side, the common femoral, superficial femoral, profunda femoral, popliteal, posterior tibial, greater saphenous veins, and the peroneal trunk were identified and interrogated in the standard fashion. These veins were found to be easily compressible with spontaneous blood flow. No evidence of insufficiency or thrombus noted. FINDINGS: Normal 2-D Doppler and augmentation and compressibility throughout the lower extremity venous structures. Additional imaging through the proximal calf veins also reveals no thrombus. Limited evaluation of the greater saphenous vein is patent with no thrombus.. CONCLUSIONS No evidence of left lower extremity DVT. Canelo Ricks MD (Electronically Signed) Final Date: 21 May 2021 15:21 S
== END 2021-05-21 12:51 | disposition home or self-care (01) ==
LOC: RAD 12:52
PROVIDERS: PCP Family Medicine; Visit Provider Family Medicine
DX: M79.89 Other specified soft tissue disorders (principal); M79.605 Pain in left leg
CPT/HCPCS: 93971

== ENCOUNTER → 2021-06-09 08:32 | Outpatient (BNVA) | payer OTHER, SELFPAY | PROVIDERS: PCP Family Medicine; Visit Provider Family Medicine | DX: Z20.822 Contact with and (suspected) exposure to COVID-19 (principal); J06.9 Acute upper respiratory infection, unspecified; R52 Pain, unspecified; R50.9 Fever, unspecified; J02.9 Acute pharyngitis, unspecified | CPT/HCPCS: 87635 ==

== ENCOUNTER → 2021-08-13 10:11 | Outpatient (BNVA) | payer OTHER, SELFPAY | PROVIDERS: PCP Family Medicine; Visit Provider Family Medicine | DX: M17.12 Unilateral primary osteoarthritis, left knee (principal) | CPT/HCPCS: 73560 ==

== ENCOUNTER 2022-02-18 09:18 | Outpatient (CLI) | payer OTHER, SELFPAY ==
--- NOTE | 2022-02-18 09:40 | XR_ITS ---
WS: [id number] Chest 2 views, 02/18/2022 Clinical Data: progressive dyspnea on exertion Comparison: Portable chest, 03/13/2020. Findings: No nodules, masses or effusions are seen. The heart is normal. The pulmonary vascularity is not increased. No pneumonia or pneumothorax is seen. XR/XR chest 2V* [id number] Impression: Negative chest.
== END 2022-02-18 09:19 | disposition home or self-care (01) ==
LOC: RAD 09:21
PROVIDERS: PCP Family Medicine; Visit Provider Family Medicine
DX: R06.09 Other forms of dyspnea (principal)
CPT/HCPCS: 71046

== ENCOUNTER 2022-03-20 11:59 | Outpatient (CLI) | payer OTHER, SELFPAY ==
--- NOTE | 2022-03-20 12:13 | US_ITS ---
WS: [id number] RIGHT UPPER QUADRANT ULTRASOUND HISTORY: right upper quadrant pain COMPARISON: 03/01/2018 Liver: 13.4 cm in length. Normal size liver. No bile duct dilatation or mass. Portal Vein: Normal hepatopetal flow with monophasic waveform. Gallbladder: Normally distended gallbladder with no stones or wall thickening. CBD: 0.8 cm Pancreas: Normal size and echogenicity. Right kidney: 10.5 cm in length. Normal size and echogenicity. No hydronephrosis or mass. Aorta and IVC: Unremarkable abdominal aorta and IVC. No ascites. US/US gall bladder [id number] IMPRESSION: Normal RIGHT upper quadrant ultrasound.
== END 2022-03-20 12:00 | disposition home or self-care (01) ==
PROVIDERS: PCP Family Medicine; Visit Provider Family Medicine
DX: R10.11 Right upper quadrant pain (principal); K50.90 Crohn's disease, unspecified, without complications; D86.9 Sarcoidosis, unspecified
CPT/HCPCS: 76705; 80053; 82150; 85025

== ENCOUNTER 2023-04-16 07:42 | Outpatient (CLI) | payer OTHER, SELFPAY ==
--- NOTE | 2023-04-16 07:48 | MM_ITS ---
WS: [id number] BILATERAL SCREENING DIGITAL BREAST MAMMOGRAPHY WITH CARLOS DISPLACEMENT VIEWS. CAD PERFORMED. HISTORY: SCREENING COMPARISON: 07/31/2019 and 10/07/2017 Bilateral craniocaudal and mediolateral oblique views are performed with tomosynthesis and SM. Carlos displacement views in CC and MLO projection also performed. Breasts composition: There are scattered areas of fibroglandular density. Prepectoral implants are i ntact with mild capsular contraction and calcification. No collapse of the implant. No suspicious juan c cifications. No mass. IMPRESSION: MM/[place] [id number] BI-RADS: 2-Benign FOLLOW-UP: 1 Year Follow-up
== END 2023-04-16 07:43 | disposition home or self-care (01) ==
LOC: RAD 07:43
PROVIDERS: PCP Family Medicine; Visit Provider Family Medicine
DX: Z12.31 Encounter for screening mammogram for malignant neoplasm of breast (principal)
CPT/HCPCS: 77063; 77067

== ENCOUNTER → 2023-08-02 15:26 | Outpatient (BNVA) | payer OTHER, SELFPAY | PROVIDERS: PCP Family Medicine; Visit Provider Family Medicine | DX: E03.9 Hypothyroidism, unspecified (principal); I10 Essential (primary) hypertension | CPT/HCPCS: 80053; 84443; 85025 ==

== ENCOUNTER → 2024-04-11 09:53 | Outpatient (BNVA) | payer OTHER, SELFPAY | PROVIDERS: PCP Family Medicine; Visit Provider Family Medicine | DX: F33.1 Major depressive disorder, recurrent, moderate (principal); E03.9 Hypothyroidism, unspecified; K50.119 Crohn's disease of large intestine with unspecified complications; M19.90 Unspecified osteoarthritis, unspecified site; R52 Pain, unspecified | CPT/HCPCS: 80053; 82728; 83540; 84443; 85025 ==

== ENCOUNTER → 2024-11-22 07:54 | Outpatient (BNVA) | payer OTHER, SELFPAY | PROVIDERS: PCP Family Medicine; Visit Provider Physician Assistant | DX: M25.561 Pain in right knee (principal); M25.562 Pain in left knee; M17.0 Bilateral primary osteoarthritis of knee | CPT/HCPCS: 73560; 73565 ==

== ENCOUNTER 2025-01-22 07:58 | Outpatient (CLI) | payer OTHER, SELFPAY ==
[2025-01-22 09:15] LABS: Hematocrit 40.8 % (36-47); Hemoglobin 13.80 g/dL (11.27-16.99); Mean Corpuscular HGB Conc 33.8 g/dL (30-55); Mean Corpuscular Hemoglobin 29.3 pg (27-33); Mean Corpuscular Volume 86.6 fl (85-98); Nucleated Red Blood Cells % 0 %; Platelet Count 382 10^3/cmm (157-399); Red Blood Count 4.71 10^6/uL (3.85-5.65); White Blood Count 6.93 10^3/uL (3.29-11.43)
== END 2025-01-22 07:59 | disposition home or self-care (01) ==
PROVIDERS: PCP Family Medicine
DX: K51.90 Ulcerative colitis, unspecified, without complications (principal)
CPT/HCPCS: 83993; 85025

== ENCOUNTER 2025-01-23 07:52 | Outpatient (CLI) | payer OTHER, SELFPAY ==
[2025-01-23 09:18] LABS: Alanine Aminotransferase 16 U/L (0-33); Albumin Level 4.4 g/dL (3.5-5.2); Alkaline Phosphatase 115 U/L (35-105); Anion Gap 16.8 (5-19); Aspartate Amino Transferase 21 U/L (0-32); Blood Urea Nitrogen 8 mg/dL (6-20); Calcium 9.4 mg/dL (8.5-10.5); Carbon Dioxide 24 mmol/L (22-29); Chloride 100 mmol/L (98-107); Globulin 3.1 g/dL (1.3-4.6); Glucose 98 mg/dL (65-115); Osmolality Calculated 282 mOsm/kg (285-295); Potassium 3.8 mmol/L (3.5-5.1); Sodium 137 mmol/L (136-145); Total Protein 7.5 g/dL (6.6-8.7)
== END 2025-01-23 07:53 | disposition home or self-care (01) ==
PROVIDERS: PCP Family Medicine
DX: K51.90 Ulcerative colitis, unspecified, without complications (principal)
CPT/HCPCS: 36415; 80053; 86140

== ENCOUNTER 2025-01-31 15:47 | Outpatient (CLI) | payer SELFPAY ==
--- NOTE | 2025-01-31 16:00 | MR_ITS ---
WS: [id number] MRI LEFT KNEE NONCONTRAST TECHNIQUE: Axial PD, coronal PD fat sat, coronal PD, sagittal PD, and sagittal PD fat-sat images obtained. CLINICAL INFORMATION: derangement of left knee COMPARISON: None. FINDINGS: Moderate tricompartmental arthritis. Hypertrophic changes along the joint line. Distal quadriceps and patella tendons are intact. Hypertrophic patella. Moderate chondromalacia patella. Medial and lateral patellar retinaculum appear intact. Soft tissue edema about the knee. ACL is somewhat diminutive but appears intact. Normal PCL. Chronic thinning of the medial and lateral meniscus. Horizontal tear involving the anterior horn lateral meniscus and posterior horn medial meniscus. Peripheral extrusion of the medial and lateral meniscus. No subchondral edema. Normal popliteal fossa. Medial and lateral collateral ligaments appear intact. MR/MR knee LT wo con* [id number] IMPRESSION: 1. Somewhat diminutive ACL appears intact. Normal PCL. 2. Moderate tricompartmental arthritis. 3. Horizontal tears involving the anterior horn lateral meniscus and posterior horn medial meniscus with peripheral extrusion. 4. Grade III chondromalacia patella. 5. Soft tissue edema about the joint line with hypertrophic changes. Outbridge grading: grade III: partial-thickness cartilage loss with focal ulcer ation
== END 2025-01-31 15:48 | disposition home or self-care (01) ==
LOC: RAD 15:49
PROVIDERS: PCP Family Medicine; Visit Provider Physician Assistant
DX: M23.92 Unspecified internal derangement of left knee (principal); M17.0 Bilateral primary osteoarthritis of knee; M17.32 Unilateral post-traumatic osteoarthritis, left knee; M17.12 Unilateral primary osteoarthritis, left knee; S83.282A Other tear of lateral meniscus, current injury, left knee, initial encounter; S83.242A Other tear of medial meniscus, current injury, left knee, initial encounter; X58.XXXA Exposure to other specified factors, initial encounter; M22.42 Chondromalacia patellae, left knee; M79.89 Other specified soft tissue disorders
CPT/HCPCS: 73721

== ENCOUNTER 2025-02-13 14:57 | Outpatient (CLI) | payer OTHER, SELFPAY ==
[2025-02-13 21:11] LABS: Hepatitis B Surface Antigen Non-Reactive (Nonreactive)
== END 2025-02-13 14:58 | disposition home or self-care (01) ==
LOC: LAB 15:03
PROVIDERS: PCP Family Medicine
DX: K50.10 Crohn's disease of large intestine without complications (principal)
CPT/HCPCS: 36415; 82657; 86480; 86706; 86803; 87340

== ENCOUNTER 2025-03-16 15:47 | Outpatient (CLI) | payer OTHER, SELFPAY ==
--- NOTE | 2025-03-16 16:00 | MR_ITS ---
WS: [id number] MRI RIGHT KNEE NONCONTRAST TECHNIQUE: Axial PD, coronal PD fat sat, coronal PD, sagittal PD, and sagittal PD fat-sat images obtained. CLINICAL INFORMATION: right knee injury COMPARISON: None. FINDINGS: Distal quadriceps and patella tendons are intact. Hypertrophic patella. Moderate tricompartmental arthritis. Small suprapatellar effusion. Grade III chondromalacia patella with chondral fissuring. ACL and PCL appear intact. Grade III chondromalacia medial and lateral joint compartments. Associated chondral fissuring. Edema in the soft tissues about the joint line. Medial and lateral collateral ligaments appear intact. Chronic thinning of the medial and lateral meniscus with desiccation and peripheral extrusion. No acute appearing meniscal tears. MR/MR knee RT wo con* [id number] IMPRESSION: 1. Moderate tricompartmental arthritis with grade III chondromalacia and chond ral fissuring. 2. Grade III chondromalacia patella 3. Small suprapatellar effusion. 4. Chronic thinning and desiccation of the medial and lateral meniscus. No acu te appearing meniscal tears. 5. ACL and PCL appear intact Outbridge grading: grade III: partial-thickness cartilage loss with focal ulcer ation
== END 2025-03-16 15:48 | disposition home or self-care (01) ==
LOC: RAD 15:50
PROVIDERS: PCP Family Medicine; Visit Provider Student in an Organized Health Care Education/Training Program
DX: M23.303 Other meniscus derangements, unspecified medial meniscus, right knee (principal)
CPT/HCPCS: 73721